=== PATIENT | female | born 1995 | race Caucasian/White ===

== ENCOUNTER 2018-10-27 21:41 | Emergency (ER) | payer OTHER ==
[~2018-10-27] VITALS: Ht 157.5 cm; Wt 80.9 kg
[2018-10-27 21:55] VITALS: BP 130/63
--- NOTE | 2018-10-27 21:58 | NUR ---
PT RETURNED TO LOBBY IN STABLE CONDITION
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
[2018-10-27] MEDS ORDERED: IBUPROFEN 800 MG TAB PO ONE (23:00)
[2018-10-27] MEDS ORDERED: CYCLOBENZAPRINE 10 MG TAB PO ONE (23:25)
--- NOTE | 2018-10-28 00:13 | NUR ---
Patient discharged with v/s stable. Written and verbal after care instructions given and explained. Patient alert, oriented and verbalized understanding of instructions. Ambulatory with steady gait. All questions addressed prior to discharge. ID band removed. Patient advised to follow up with PMD. Rx of FLEXERIL, IBUPROFEN given. Patient educated on indication of medication including possible reaction and side effects. Opportunity to ask questions provided and answered.
[2018-10-28 00:16] VITALS: BP 112/47
== END 2018-10-28 00:13 | disposition home or self-care (01) ==
LOC: MED 21:41
DX: M54.5 Low back pain (principal); M54.40 Lumbago with sciatica, unspecified side; Y04.2XXA Assault by strike against or bumped into by another person, initial encounter; Y93.89 Activity, other specified; Y92.89 Other specified places as the place of occurrence of the external cause; Y99.8 Other external cause status
CPT/HCPCS: 72072; 72110; 81002; 81025; 99283

== ENCOUNTER 2019-02-08 23:16 | Emergency (ER) | payer OTHER ==
[~2019-02-08] VITALS: Ht 157.5 cm; Wt 80.7 kg
[2019-02-08 23:21] VITALS: BP 118/51
--- NOTE | 2019-02-08 23:44 | NUR ---
PT TO ED WITH C/O EPIGASTRIC PAIN AND CONSTIPATION X 3 DAYS. PT DENIES N/V AT THIS TIME. PT REPORTS INCREASE IN PAIN AFTER EATING. +BOWEL SOUNDS X 4 QUADRANTS. DENIES PAIN UPON PALPATION. PT PLACED INTO BED, PENDING MD HCAND.
[2019-02-09] MEDS ORDERED: KETOROLAC 60 MG/2 ML VIAL IM ONE (00:05)
[2019-02-09] MEDS ORDERED: ONDANSETRON 4 MG ODT PO ONE (00:05)
--- NOTE | 2019-02-09 00:30 | NUR ---
DR. LAINEZ MADE AWARE PT PAIN/NAUSEA UNCHANGED AFTER TORADOL, ORDERS PLACED.
[2019-02-09] MEDS ORDERED: MORPHINE SULFATE 4 MG/ML SYR IVP ONE (00:40)
[2019-02-09] MEDS ORDERED: ONDANSETRON 4 MG/2 ML VIAL IVP ONE (00:40)
[2019-02-09] MEDS ORDERED: NACL 0.9% 1,000 ML IV ONE (00:40)
--- NOTE | 2019-02-09 01:40 | NUR ---
PT REPORTS PAIN AT 0/10, NO EPISODES OF N/V POST MEDICATION ADMIN.
--- NOTE | 2019-02-09 01:55 | NUR ---
Patient discharged with v/s stable. Written and verbal after care instructions given and explained. Patient alert, oriented and verbalized understanding of instructions. Ambulatory with steady gait. All questions addressed prior to discharge. ID band removed. Patient advised to follow up with PMD. Rx of ZOFRAN, MOTRIN, NORCO given. Patient educated on indication of medication including possible reaction and side effects. Opportunity to ask questions provided and answered.
--- NOTE | 2019-02-09 01:55 | NUR ---
IV removed, catheter intact and site benign. Applied folded 4x4 gauze and tape to stop bleeding.
[2019-02-09 01:56] VITALS: BP 110/64
== END 2019-02-09 01:56 | disposition home or self-care (01) ==
LOC: MED 23:16
DX: R10.13 Epigastric pain (principal); R11.2 Nausea with vomiting, unspecified; M54.9 Dorsalgia, unspecified
CPT/HCPCS: 81002; 81025; 96361; 96372; 96374; 96375; 99283; J1885; J2270; J2405; J7030; Q0162

== ENCOUNTER 2019-03-04 03:20 | Emergency (ER) | payer OTHER ==
[~2019-03-04] VITALS: Ht 157.5 cm; Wt 80.7 kg
[2019-03-04 03:22] VITALS: BP 123/80
--- NOTE | 2019-03-04 03:41 | NUR ---
DR. CACERES BEDSIDE EVALUATING PT
--- NOTE | 2019-03-04 03:43 | NUR ---
C/O EPIGASTRIC PAIN RADIATING TO BACK X1 HR. REPORTS N/V X2 THIS AM. REPORTS SIMILAR EPISODE IN PAST; ATE CHIPS WITH CHILI AND PIZZA LAST NIGHT. REPORTS LBM YESTERDAY. DENIES FEVER/CHILLS, DIARRHEA OR DYSURIA.
[2019-03-04] MEDS ORDERED: DICYCLOMINE HCL LIQUID 20 MG, ALUMINUM HYD/MAG/SIMETHICONE 30 ML, LIDOCAINE VISCOUS 2% ... PO ONE ×3 (03:45)
--- NOTE | 2019-03-04 04:02 | NUR ---
Dr. Trammell at bedside.
--- NOTE | 2019-03-04 04:12 | NUR ---
PATIENT STATES SHE IS FEELING BETTER AFTER MEDICATION. ERMD AWARE
[2019-03-04 04:28] VITALS: BP 123/80
--- NOTE | 2019-03-04 04:29 | NUR ---
Patient discharged with v/s stable. Written and verbal after care instructions given and explained. Patient alert, oriented and verbalized understanding of instructions. Ambulatory with steady gait. All questions addressed prior to discharge. ID band removed. Patient advised to follow up with PMD. Rx of MYLANTA given. Patient educated on indication of medication including possible reaction and side effects. Opportunity to ask questions provided and answered.
== END 2019-03-04 04:29 | disposition home or self-care (01) ==
LOC: MED 03:20
DX: R10.10 Upper abdominal pain, unspecified (principal); M54.6 Pain in thoracic spine
CPT/HCPCS: 81002; 81025; 99282

== ENCOUNTER 2019-04-01 19:52 | Emergency (ER) | payer OTHER ==
[~2019-04-01] VITALS: Ht 157.5 cm; Wt 62.6 kg
[2019-04-01 19:56] VITALS: BP 127/68
--- NOTE | 2019-04-01 19:58 | NUR ---
TO LOBBY A/W BED , AMBULATORY
--- NOTE | 2019-04-01 20:55 | NUR ---
PT AMBULATED TO ER BED 2
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
[2019-04-01] MEDS ORDERED: FAMOTIDINE 20 MG TAB PO ONE (22:05)
[2019-04-01 22:17] LABS: BASOPHILS % (AUTO) 0.4 % (0.0-2.0); EOSINOPHILS % (AUTO) 0.3 % (0.0-4.0); HEMATOCRIT 37.3 % (36-48); HEMOGLOBIN 12.4 g/dL (12.0-16.0); LYMPHOCYTES # (AUTO) 1.5 K/uL (2.5-16.5); LYMPHOCYTES % (AUTO) 20.6 % (20.5-51.1); MEAN CORPUSCULAR HEMOGLOBIN 31 pg (27-31); MEAN CORPUSCULAR HGB CONC 33 g/dL (33-37); MEAN CORPUSCULAR VOLUME 91.5 fL (80-94); MONOCYTES # (AUTO) 0.4 K/uL (0.8-1.0); MONOCYTES % (AUTO) 6.1 % (1.7-9.3); NEUTROPHILS # (AUTO) 5.3 K/uL (1.8-7.7); NEUTROPHILS % (AUTO) 72.6 % (42.2-75.2); PLATELET COUNT (AUTO) 331 K/uL (140-450); RED BLOOD CELL COUNT(AUTO) 4.07 MIL/uL (4.20-5.40); RED CELL DISTRIBUTION WIDTH 12.9 % (11.6-13.7); WHITE BLOOD COUNT (AUTO) 7.3 K/uL (4.8-10.8)
[2019-04-01 22:27] LABS: ANION GAP 9.7 (8-16); CARBON DIOXIDE 30.5 mmol/L (21-32); CREATININE 0.7 mg/dL (0.6-1.3); POTASSIUM 4.2 mmol/L (3.5-5.1)
[2019-04-01 22:32] LABS: ALBUMIN 3.9 g/dL (3.4-5.0); TOTAL BILIRUBIN 0.6 mg/dL (0.0-1.0)
--- NOTE | 2019-04-01 22:55 | NUR ---
PT IS REFUSING CT SCAN. SHE STATES SHE DOESN'T NEED IT. DR. PISANO NOTIFIED.
--- NOTE | 2019-04-01 22:58 | NUR ---
PATIENT ELOPED FROM FACILITY. PT REFUSING FURTHER TREATMENT. SHE STATES SHE FEELS BETTER AND DOESN'T WISH TO WAIT FOR FURTHER TESTING. DISCHARGE INSTRUCTIONS NOT GIVEN TO PATIENT. DR. PISANO NOTIFIED.
== END 2019-04-01 22:58 | disposition left against medical advice (07) ==
LOC: MED 19:52
DX: R10.13 Epigastric pain (principal); R11.10 Vomiting, unspecified
CPT/HCPCS: 36415; 80053; 81002; 81025; 85025; 99283

== ENCOUNTER 2019-06-02 01:41 | Emergency (ER) | payer OTHER ==
[~2019-06-02] VITALS: Ht 157.5 cm; Wt 63.0 kg
[2019-06-02 01:43] VITALS: BP 108/79
--- NOTE | 2019-06-02 01:43 | NUR ---
TO BED # 04 AMBULATORY
--- NOTE | 2019-06-02 01:52 | NUR ---
PATIENT PRESENTS TO ED WITH ABD PAIN FOR 7 HOURS, DENIES D; SKIN IS PINK/WARM/DRY; AAOX4 WITH EVEN AND STEADY GAIT; LUNGS CLEAR BL; HR EVEN AND REGULAR; PT DENIES ANY FEVER, CP, SOB, OR COUGH AT THIS TIME; PATIENT STATES PAIN OF 6/10 AT THIS TIME; VSS; PATIENT POSITIONED FOR COMFORT; HOB ELEVATED; BEDRAILS UP X2; BED DOWN. ER MD MADE AWARE OF PT STATUS.
--- NOTE | 2019-06-02 02:52 | NUR ---
Dr. Anderson examining patient.
[2019-06-02] MEDS ORDERED: KETOROLAC 60 MG/2 ML VIAL IM ONE (03:00)
[2019-06-02] MEDS ORDERED: DICYCLOMINE HCL LIQUID 20 MG, ALUMINUM HYD/MAG/SIMETHICONE 30 ML, LIDOCAINE VISCOUS 2% ... PO ONE ×3 (03:10)
[2019-06-02 03:28] VITALS: BP 112/80
--- NOTE | 2019-06-02 03:30 | NUR ---
Patient discharged with v/s stable. Written and verbal after care instructions given and explained. Patient alert, oriented and verbalized understanding of instructions. Ambulatory with steady gait. All questions addressed prior to discharge. ID band removed. Patient advised to follow up with PMD. Rx of zofran, motrin, and prilosec given. Patient educated on indication of medication including possible reaction and side effects. Opportunity to ask questions provided and answered.
== END 2019-06-02 03:30 | disposition home or self-care (01) ==
LOC: MED 01:41
DX: R10.13 Epigastric pain (principal); R11.2 Nausea with vomiting, unspecified
CPT/HCPCS: 81002; 81025; 99283; J1885

== ENCOUNTER 2019-06-27 13:53 | Emergency (ER) | payer OTHER ==
[~2019-06-27] VITALS: Ht 157.5 cm; Wt 75.7 kg
[2019-06-27 14:01] VITALS: BP 125/77
--- NOTE | 2019-06-27 14:05 | NUR ---
DR RICHARD EVALUATING AAOX4 AT BEDSIDE
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
--- NOTE | 2019-06-27 15:29 | NUR ---
Patient discharged by Dr Sepulveda with v/s stable. Written and verbal after care instructions given and explained. Patient alert, oriented and verbalized understanding of instructions. Ambulatory with steady gait. All questions addressed prior to discharge. ID band removed. Patient advised to follow up with PMD. Rx of Naprosyn given. Patient educated on indication of medication including possible reaction and side effects. Opportunity to ask questions provided and answered.
--- NOTE | 2019-06-27 15:29 | NUR ---
PT RESTING COMFORTABLY TO BE D/C PER MD, AWAITING ORDERS
[2019-06-27 15:45] VITALS: BP 107/72
--- NOTE | 2019-06-27 15:45 | NUR ---
Note undone in EDM - 06/27/19 at 1555 by LEANNE Patient discharged by Dr Sepulveda with v/s stable. Written and verbal after care instructions given and explained. Patient alert, oriented and verbalized understanding of instructions. Ambulatory with steady gait. All questions addressed prior to discharge. ID band removed. Patient advised to follow up with PMD. Rx of Naprosyn given. Patient educated on indication of medication including possible reaction and side effects. Opportunity to ask questions provided and answered.
== END 2019-06-27 15:29 | disposition home or self-care (01) ==
LOC: MED 13:53
DX: S00.83XA Contusion of other part of head, initial encounter (principal); W10.9XXA Fall (on) (from) unspecified stairs and steps, initial encounter; Y93.89 Activity, other specified; Y92.89 Other specified places as the place of occurrence of the external cause; Y99.8 Other external cause status
CPT/HCPCS: 70486; 99284

== ENCOUNTER 2019-07-25 23:19 | Emergency (ER) | payer OTHER ==
[~2019-07-25] VITALS: Ht 157.5 cm; Wt 76.2 kg
[2019-07-25 23:31] VITALS: BP 115/68
[2019-07-25 23:40] VITALS: BP 115/68
--- NOTE | 2019-07-25 23:40 | NUR ---
24 Y/O F PRESENTS TO ED WITH C/O EPIGASTRIC ABDOMINAL PAIN X1 DAY. S/P INGESTION OF LEMON AND CHILI. +VOMITTING. ADVIL TAKEN AT 1935. BOWEL SOUNDS PRESENT [id number]. ABDOMEN SOFT AND NON-TENDER. WILL CONTIUE TO MONITOR.
--- NOTE | 2019-07-25 23:48 | NUR ---
Patient discharged by with v/s stable. Written and verbal after care instructions given and explained. Patient verbalized understanding. Ambulatory with steady gait. All questions addressed prior to discharge. Advised to follow up with PMD.
== END 2019-07-25 23:48 | disposition home or self-care (01) ==
LOC: MED 23:19
DX: K29.70 Gastritis, unspecified, without bleeding (principal); Z02.79 Encounter for issue of other medical certificate
CPT/HCPCS: 99281

== ENCOUNTER 2019-11-22 06:24 | Emergency (ER) | payer OTHER ==
[~2019-11-22] VITALS: Ht 157.5 cm; Wt 79.0 kg
[2019-11-22 06:30] VITALS: BP 131/59
--- NOTE | 2019-11-22 06:30 | NUR ---
to bed # 06 ambulatory
--- NOTE | 2019-11-22 06:35 | NUR ---
24 Y/O FEMALE BIB SELF FOR MIDEPIGASTRIC PAIN SINCE 0200 TODAY. PROVOKED BY EATING; PAIN IS A 10/10 SHARP, ACUTE PAIN; NON-RADIATING. +N/V BEFORE COMING TO [facility]; DENIES DIARRHEA. LAST BM WAS 11/21/19; FELT CONSTIPATED. PER PATIENT, " I WAS HERE BEFORE FOR THE SAME THING AND THE DOCTOR SAID TO STOP EATING HOT CHEETOS, LEMON AND WAS GIVEN MEDICATION FOR THE PAIN". ABDOMEN SOFT AND ROUND; ABDOMINAL SOUNDS HEARD THROUGHOUT. PAIN UPON PALPATING MIDEPIGASTRIC REGION. DENIES DYSURIA. ERMD MADE AWARE OF STATUS. SIDE RAILSX1. WILL CONTINUE TO MONITOR. PMH:DENIES RX:MEDICATION FOR ABDOMINAL PAIN NKDA
--- NOTE | 2019-11-22 07:05 | NUR ---
Dr. Vivar examining patient.
[2019-11-22 07:06] LABS: BASOPHILS % (AUTO) 0.3 % (0.0-2.0); EOSINOPHILS # (AUTO) 0.2 K/uL (0-0.4); EOSINOPHILS % (AUTO) 1.3 % (0.0-4.0); HEMATOCRIT 36.2 % (36-48); HEMOGLOBIN 11.8 g/dL (12.0-16.0); LYMPHOCYTES # (AUTO) 2.9 K/uL (2.5-16.5); LYMPHOCYTES % (AUTO) 20.2 % (20.5-51.1); MEAN CORPUSCULAR HEMOGLOBIN 31 pg (27-31); MEAN CORPUSCULAR HGB CONC 33 g/dL (33-37); MEAN CORPUSCULAR VOLUME 93.5 fL (80-94); MONOCYTES # (AUTO) 0.9 K/uL (0.8-1.0); MONOCYTES % (AUTO) 6.4 % (1.7-9.3); NEUTROPHILS # (AUTO) 10.4 K/uL (1.8-7.7); NEUTROPHILS % (AUTO) 71.8 % (42.2-75.2); PLATELET COUNT (AUTO) 329 K/uL (140-450); RED BLOOD CELL COUNT(AUTO) 3.87 MIL/uL (4.20-5.40); RED CELL DISTRIBUTION WIDTH 13.2 % (11.6-13.7); WHITE BLOOD COUNT (AUTO) 14.5 K/uL (4.8-10.8)
--- NOTE | 2019-11-22 07:12 | NUR ---
INSERTED LAC 22 GAUGE IV; SALINE LOCK.
--- NOTE | 2019-11-22 07:13 | NUR ---
URINE DIP AND HCG DONE. RESULTS GIVEN TO
--- NOTE | 2019-11-22 07:13 | NUR ---
Pt report given to ROXANNA Gunter. Transfer of care at this time.
--- NOTE | 2019-11-22 07:14 | NUR ---
RECEIVED REPORT FROM ROXANNA CARPIO AND ASSUMED CARE OF PT
[2019-11-22 07:23] LABS: ALBUMIN 3.6 g/dL (3.4-5.0); ANION GAP 11.1 (8-16); CARBON DIOXIDE 30.3 mmol/L (21-32); CREATININE 0.8 mg/dL (0.6-1.3); POTASSIUM 4.4 mmol/L (3.5-5.1); TOTAL BILIRUBIN 0.2 mg/dL (0.0-1.0)
--- NOTE | 2019-11-22 07:39 | NUR ---
ULTRASOUND AT BEDSIDE
[2019-11-22 08:43] LABS: APPEARANCE,URINE CLEAR (CLEAR); BILIRUBIN,URINE NEGATIVE (NEGATIVE); BLOOD, URINE NEGATIVE (NEGATIVE); COLOR,URINE YELLOW (YELLOW); LEUKOCYTE ESTERASE ,URINE NEGATIVE (NEGATIVE); NITRITE, URINE NEGATIVE (NEGATIVE); UGLUCOSE NEGATIVE (NEGATIVE)
--- NOTE | 2019-11-22 08:52 | NUR ---
PT RESTING COMFORTABLY IN BED. PAIN IS NOW 2/10. 1X BEDRAIL UP.
--- NOTE | 2019-11-22 09:57 | NUR ---
IV removed, catheter intact and site benign. Applied folded 4x4 gauze and tape to stop bleeding.
--- NOTE | 2019-11-22 09:57 | NUR ---
Patient discharged with v/s stable. Written and verbal after care instructions given and explained. Patient alert, oriented and verbalized understanding of instructions. Ambulatory with steady gait. All questions addressed prior to discharge. ID band removed. Patient advised to follow up with PMD. Rx of ZOFRAN AND NORCO given. Patient educated on indication of medication including possible reaction and side effects. Opportunity to ask questions provided and answered
[2019-11-22 09:58] VITALS: BP 136/92
== END 2019-11-22 09:57 | disposition home or self-care (01) ==
LOC: MED 06:24
DX: K80.20 Calculus of gallbladder without cholecystitis without obstruction (principal)
CPT/HCPCS: 36415; 76705; 80053; 81003; 81025; 83690; 84703; 85025; 99284

== ENCOUNTER 2019-12-10 01:01 | Emergency (ER) | payer OTHER ==
[~2019-12-10] VITALS: Ht 157.5 cm; Wt 78.9 kg
[2019-12-10 01:05] VITALS: BP 123/78
--- NOTE | 2019-12-10 01:10 | NUR ---
PT AMBULATED TO ER BED 01
--- NOTE | 2019-12-10 01:17 | NUR ---
24 YO FEMALE CO ABD PAIN DUE TO GALL STONES. PT HAS 8/10 PAIN IN HER ABD. PT ATE LEMON ON HER SEAFOOD TODAY CAUSING THE VOMITING. PT HAD N/V. PT TOOK ZOFRAN TODAY. BS ACTIVE IN ALL 4 QUADS. PT IS LAYING IN BED WITH ONE SIDE RAIL UP FOR SAFETY.
[2019-12-10] MEDS ORDERED: KETOROLAC 30 MG/ML VIAL IM ONE (01:55)
[2019-12-10] MEDS ORDERED: DICYCLOMINE HCL LIQUID 20 MG, ALUMINUM HYD/MAG/SIMETHICONE 30 ML, LIDOCAINE VISCOUS 2% ... PO ONE ×3 (01:55)
[2019-12-10] MEDS ORDERED: LIDOCAINE VISCOUS 2% 20 ML UDC ONE (02:06)
[2019-12-10] MEDS ORDERED: ALUMINUM HYD/MAG/SIMETHICONE 30 ML UDC ONE (02:06)
[2019-12-10] MEDS ORDERED: DICYCLOMINE HCL LIQUID 10 MG/5 ML UDC ONE (02:07)
[2019-12-10 02:42] VITALS: BP 123/78
--- NOTE | 2019-12-10 02:45 | NUR ---
Patient discharged with v/s stable. Written and verbal after care instructions given and explained. Patient verbalized understanding. Ambulatory with steady gait. All questions addressed prior to discharge. Advised to follow up with PMD.
== END 2019-12-10 02:45 | disposition home or self-care (01) ==
LOC: MED 01:01
DX: K80.20 Calculus of gallbladder without cholecystitis without obstruction (principal)
CPT/HCPCS: 96372; 99283; J1885

== ENCOUNTER 2020-01-08 03:12 | Emergency (ER) | payer OTHER ==
[~2020-01-08] VITALS: Ht 154.9 cm; Wt 78.9 kg
--- NOTE | 2020-01-08 03:32 | NUR ---
PT TAKEN TO BED 8
[2020-01-08 03:33] VITALS: BP 105/37
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
[2020-01-08] MEDS ORDERED: DICYCLOMINE HCL LIQUID 20 MG, ALUMINUM HYD/MAG/SIMETHICONE 30 ML, LIDOCAINE VISCOUS 2% ... PO ONE ×3 (03:55)
[2020-01-08] MEDS ORDERED: KETOROLAC 30 MG/ML VIAL IM ONE (03:55)
[2020-01-08] MEDS ORDERED: HYDROcodone/APAP 5/325 MG 1 TAB TAB PO ONE (03:55)
[2020-01-08] MEDS ORDERED: LIDOCAINE VISCOUS 2% 20 ML UDC ONE (04:04)
[2020-01-08] MEDS ORDERED: DICYCLOMINE HCL LIQUID 10 MG/5 ML UDC ONE (04:04)
[2020-01-08] MEDS ORDERED: ALUMINUM HYD/MAG/SIMETHICONE 30 ML UDC ONE (04:04)
--- NOTE | 2020-01-08 04:07 | NUR ---
LAB AT BEDSIDE.
[2020-01-08 04:30] LABS: ALBUMIN 3.4 g/dL (3.4-5.0); ANION GAP 10.8 (8-16); CARBON DIOXIDE 29.9 mmol/L (21-32); CREATININE 0.8 mg/dL (0.6-1.3); POTASSIUM 3.7 mmol/L (3.5-5.1); TOTAL BILIRUBIN 0.2 mg/dL (0.0-1.0)
--- NOTE | 2020-01-08 04:38 | NUR ---
PT AMBULATED TO RESTROOM, STEADY GAIT.
--- NOTE | 2020-01-08 04:40 | NUR ---
PT AMBULATED BACK TO BED 8. STEADY GAIT.
[2020-01-08 04:55] LABS: BASOPHILS # (AUTO) 0.1 K/uL (0.00-0.22); BASOPHILS % (AUTO) 0.8 % (0.0-2.0); EOSINOPHILS # (AUTO) 0.3 K/uL (0-0.4); EOSINOPHILS % (AUTO) 2.5 % (0.0-4.0); HEMATOCRIT 34.4 % (36-48); HEMOGLOBIN 11.4 g/dL (12.0-16.0); LYMPHOCYTES # (AUTO) 3.5 K/uL (2.5-16.5); LYMPHOCYTES % (AUTO) 33.5 % (20.5-51.1); MEAN CORPUSCULAR HEMOGLOBIN 31 pg (27-31); MEAN CORPUSCULAR HGB CONC 33 g/dL (33-37); MEAN CORPUSCULAR VOLUME 93.3 fL (80-94); MONOCYTES # (AUTO) 0.8 K/uL (0.8-1.0); MONOCYTES % (AUTO) 7.5 % (1.7-9.3); NEUTROPHILS # (AUTO) 5.8 K/uL (1.8-7.7); NEUTROPHILS % (AUTO) 55.7 % (42.2-75.2); PLATELET COUNT (AUTO) 321 K/uL (140-450); RED BLOOD CELL COUNT(AUTO) 3.69 MIL/uL (4.20-5.40); RED CELL DISTRIBUTION WIDTH 13.3 % (11.6-13.7); WHITE BLOOD COUNT (AUTO) 10.4 K/uL (4.8-10.8)
[2020-01-08 05:29] VITALS: BP 105/37
--- NOTE | 2020-01-08 05:29 | NUR ---
PT DISHCHARGED WITH PAPERWORK. EDUCATED PT REGARDING MEDICATIONS AND D/C INSTRUCTIONS. PT VERBALIZED UNDERSTANDING OF TEACHING. TOLD PT TO FOLLOW UP WITH PCP AND WHEN TO RETURN TO ED. PT STABLE CONDITION, DENIES N/V. ALL QUESTIONS ANSWERED.
== END 2020-01-08 05:29 | disposition home or self-care (01) ==
LOC: MED 03:12
DX: K80.50 Calculus of bile duct without cholangitis or cholecystitis without obstruction (principal)
CPT/HCPCS: 36415; 80053; 81002; 81025; 83690; 85025; 96372; 99283; J1885

== ENCOUNTER 2020-03-18 21:06 | Emergency (ER) | payer OTHER ==
[~2020-03-18] VITALS: Ht 154.9 cm; Wt 80.7 kg
[2020-03-18 21:08] VITALS: BP 111/57
--- NOTE | 2020-03-18 21:13 | NUR ---
PT TAKEN TO BED 12
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
[2020-03-18] MEDS ORDERED: IBUPROFEN 600 MG TAB PO ONE (21:20)
--- NOTE | 2020-03-18 21:20 | NUR ---
pt medicated with motrin po. tolerated well. frandyr
--- NOTE | 2020-03-18 21:20 | NUR ---
Dr. Sepulveda examining patient.
--- NOTE | 2020-03-18 21:30 | NUR ---
X-Ray at bedside.
--- NOTE | 2020-03-18 22:15 | NUR ---
pt taken to RAD via bed.
--- NOTE | 2020-03-18 22:32 | NUR ---
pt returned from RAD via bed.
--- NOTE | 2020-03-18 22:46 | NUR ---
laying down in bed. appears calm and collected. no further needs at this time. bed lowest and locked, rails x 2.
[2020-03-18 23:00] VITALS: BP 118/66
== END 2020-03-18 23:00 | disposition home or self-care (01) ==
LOC: MED 21:06
DX: S93.401A Sprain of unspecified ligament of right ankle, initial encounter (principal); W10.9XXA Fall (on) (from) unspecified stairs and steps, initial encounter; Y93.89 Activity, other specified; Y92.89 Other specified places as the place of occurrence of the external cause; Y99.8 Other external cause status
CPT/HCPCS: 72110; 73562; 73610; 81025; 99284; Q0092

== ENCOUNTER 2020-03-26 11:20 | Emergency (ER) | payer OTHER ==
[~2020-03-26] VITALS: Ht 157.5 cm; Wt 81.6 kg
--- NOTE | 2020-03-26 11:24 | NUR ---
BIBA TAKEN TO BED 11
[2020-03-26 11:30] VITALS: BP 139/96
[2020-03-26] MEDS ORDERED: LORazepam 1 MG TAB PO ONE (11:50)
[2020-03-26] MEDS ORDERED: KETOROLAC 60 MG/2 ML VIAL IM ONE (11:50)
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
[2020-03-26 12:20] VITALS: BP 139/96
--- NOTE | 2020-03-26 12:20 | NUR ---
Patient discharged with v/s stable. Written and verbal after care instructions given and explained. Patient alert, oriented and verbalized understanding of instructions. Ambulatory with steady gait. All questions addressed prior to discharge. ID band removed. Patient advised to follow up with PMD. Rx of ATARAX 25MG TAB, MOTRIN 800MG TAB, NORCO 5MG-325MG TAB given. Patient educated on indication of medication including possible reaction and side effects. Opportunity to ask questions provided and answered.
== END 2020-03-26 12:20 | disposition home or self-care (01) ==
LOC: MED 11:20
DX: M25.562 Pain in left knee (principal); M25.561 Pain in right knee; F41.9 Anxiety disorder, unspecified
CPT/HCPCS: 99283; J1885

== ENCOUNTER 2020-06-25 22:33 | Emergency (ER) | payer OTHER ==
[~2020-06-25] VITALS: Ht 154.9 cm; Wt 81.6 kg
[2020-06-25 22:37] VITALS: BP 119/76
--- NOTE | 2020-06-25 22:42 | NUR ---
PT AMBULATED TO BED 4 WITH STEADY GAIT
--- NOTE | 2020-06-25 23:06 | NUR ---
MD LAINEZ AT BEDSIDE
--- NOTE | 2020-06-25 23:06 | NUR ---
PT STATES SHE STARTED HAVING UPPER ABD PAIN EARLIER TODAY WHICH RADIATES INTO HER BACK, RATES PAIN 10/10 AND STATES IT IS SHARP IN NATURE. ALSO C/O EPIGASTRIC BURNING. PT SAID SHE ATE A LOT OF SPICEY FOOD TODAY. C/O NAUSEA AND VOMITED X 2 LOFTER. PT ALSO C/O OF BEING CONSTIPATED, NO BM X 3 DAYS. SHE SAYS SHE HAS THE URGE BUT UNABLE TO GO. AFEBRILE. BED IN LOWEST POSITION AND SIDERAIL UP X 1 NKA MED HX - GALLSTONES
--- NOTE | 2020-06-25 23:06 | NUR ---
PT WAS PROVIDED WITH CUP FOR UA BUT UNABLE TO URINATE AT THIS TIME
[2020-06-25] MEDS ORDERED: KETOROLAC 60 MG/2 ML VIAL IM ONE (23:15)
[2020-06-26] MEDS ORDERED: MORPHINE SULFATE 4 MG/ML SYR IM ONE (00:05)
[2020-06-26 00:20] VITALS: BP 119/76
--- NOTE | 2020-06-26 00:21 | NUR ---
Patient discharged with v/s stable. Written and verbal after care instructions given and explained. Patient alert, oriented and verbalized understanding of instructions. Ambulatory with steady gait. All questions addressed prior to discharge. ID band removed. Patient advised to follow up with PMD. Rx of NORCO AND MOTRIN given. Patient educated on indication of medication including possible reaction and side effects. Opportunity to ask questions provided and answered.
== END 2020-06-26 00:20 | disposition home or self-care (01) ==
LOC: MED 22:33
DX: R10.9 Unspecified abdominal pain (principal); M54.9 Dorsalgia, unspecified; R11.2 Nausea with vomiting, unspecified; K80.80 Other cholelithiasis without obstruction
CPT/HCPCS: 81002; 81025; 96372; 99284; J1885; J2270

== ENCOUNTER 2020-11-02 21:42 | Emergency (ER) | payer OTHER ==
[~2020-11-02] VITALS: Ht 154.9 cm; Wt 79.4 kg
--- NOTE | 2020-11-02 22:15 | NUR ---
ERMD ASSESSING PATIENT IN TENT.
--- NOTE | 2020-11-02 22:20 | NUR ---
KACY SWAB COLLEDTEC AND SENT TO LAB. NO NURSING INTERVENTIONS NEEDED PATIENT SEEN, TREATED, AND D/C BY ERMSavannah.
--- NOTE | 2020-11-02 22:20 | NUR ---
Note lorenzo in EDM - 11/02/20 at 2241 by [email or web address] KACY DUMAS AND SENT TO LAB. NO NURSING INTERVENTIONS NEEDED PATIENT SEEN, TREATED, AND D/C BY ERMD. ERMD ASSESSING PATIENT IN TENT.
[2020-11-02 22:37] VITALS: BP 128/87
[2020-11-02 22:40] VITALS: BP 128/87
== END 2020-11-02 22:30 | disposition home or self-care (01) ==
LOC: MED 21:42
DX: Z20.828 Contact with and (suspected) exposure to other viral communicable diseases (principal)
CPT/HCPCS: 99283; U0003

== ENCOUNTER 2020-11-12 01:50 | Emergency (ER) | payer OTHER ==
[~2020-11-12] VITALS: Ht 154.9 cm; Wt 78.9 kg
[2020-11-12 01:55] VITALS: BP 123/72
[2020-11-12] MEDS ORDERED: ONDANSETRON 4 MG/2 ML VIAL IVP ONE (02:15)
[2020-11-12] MEDS ORDERED: NACL 0.9% 1,000 ML IV ONE (02:15)
[2020-11-12] MEDS ORDERED: KETOROLAC 30 MG/ML VIAL IVP ONE (02:15)
[2020-11-12 03:36] VITALS: BP 123/72
== END 2020-11-12 03:36 | disposition home or self-care (01) ==
LOC: MED 01:50
DX: R10.11 Right upper quadrant pain (principal); R11.2 Nausea with vomiting, unspecified
CPT/HCPCS: 81002; 81025; 96361; 96374; 96375; 99284; J1885; J2405; J7030

== ENCOUNTER 2020-12-28 16:42 | Emergency (ER) | payer OTHER ==
[~2020-12-28] VITALS: Ht 154.9 cm; Wt 63.0 kg
[2020-12-28 16:47] VITALS: BP 139/56
--- NOTE | 2020-12-28 16:50 | NUR ---
Pt ambulated to ER bed 8 with a steady gait.
--- NOTE | 2020-12-28 16:53 | NUR ---
25 Y/O FEMALE C/O 07/28 TAILBONE PAIN S/P FALL X YESTERDAY. PT DENIES FEVER/CHILLS, DENIES N/V/D. PT STATES DIZZINESS YESTERDAY, DENIES TODAY. PMH: DENIES NKA
--- NOTE | 2020-12-28 16:54 | NUR ---
Dr. Anderson at pt bedside for further evaluation.
[2020-12-28] MEDS ORDERED: KETOROLAC 60 MG/2 ML VIAL IM ONE (17:05)
[2020-12-28] MEDS ORDERED: IBUP-2213 PO (17:06)
[2020-12-28] MEDS ORDERED: ACET-8386 PO (17:06)
[2020-12-28 17:16] VITALS: BP 139/56
--- NOTE | 2020-12-28 17:17 | NUR ---
Patient discharged with v/s stable. Written and verbal after care instructions given and explained. Patient alert, oriented and verbalized understanding of instructions. Ambulatory with steady gait. All questions addressed prior to discharge. ID band removed. Patient advised to follow up with PMD. Rx of IBUPROFEN 600MG PO Q6H PRN PAIN, AND HYDROCODONE-ACETAMINOPHEN 5MG-325MG PO Q6H PRN PAIN given. Patient educated on indication of medication including possible reaction and side effects. Opportunity to ask questions provided and answered.
== END 2020-12-28 17:17 | disposition home or self-care (01) ==
LOC: MED 16:42
DX: M54.5 Low back pain (principal)
CPT/HCPCS: 96372; 99284; J1885

== ENCOUNTER 2021-01-03 21:30 | Emergency (ER) | payer OTHER ==
[~2021-01-03] VITALS: Ht 154.9 cm; Wt 85.7 kg
[~2021-01-03 21:30] MED LIST: ACET-8386 PO; IBUP-2213 PO
[2021-01-03 21:47] VITALS: BP 101/52
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
[2021-01-03 23:05] VITALS: BP 101/52
== END 2021-01-03 23:05 | disposition home or self-care (01) ==
LOC: MED 21:30
DX: S09.8XXA Other specified injuries of head, initial encounter (principal); W22.8XXA Striking against or struck by other objects, initial encounter; Y93.89 Activity, other specified; Y92.89 Other specified places as the place of occurrence of the external cause; Y99.8 Other external cause status
CPT/HCPCS: 99281

== ENCOUNTER 2021-02-02 22:27 | Emergency (ER) | payer OTHER ==
[~2021-02-02] VITALS: Ht 154.9 cm; Wt 85.7 kg
[2021-02-02 22:30] VITALS: BP 132/82
[2021-02-02] MEDS ORDERED: HYDROcodone/APAP 5/325 MG 1 TAB TAB PO ONE (23:30)
[2021-02-03] MEDS ORDERED: KETOROLAC 30 MG/ML VIAL IM ONE (00:35)
[2021-02-03] MEDS ORDERED: HYDR-5080 PO (00:43)
[2021-02-03] MEDS ORDERED: IBUP-1842 PO (00:43)
[2021-02-03 01:02] VITALS: BP 132/82
[2021-02-04] MEDS ORDERED: LOPE-289 PO (23:09)
[2021-02-04] MEDS ORDERED: ONDA8TAB87 PO (23:09)
== END 2021-02-03 01:58 | disposition home or self-care (01) ==
LOC: MED 22:27
DX: S93.401A Sprain of unspecified ligament of right ankle, initial encounter (principal); M25.561 Pain in right knee; M25.562 Pain in left knee; W19.XXXA Unspecified fall, initial encounter; Y93.89 Activity, other specified; Y92.89 Other specified places as the place of occurrence of the external cause; Y99.8 Other external cause status
CPT/HCPCS: 73562; 73630; 96372; 99284; J1885

== ENCOUNTER 2021-02-04 20:25 | Emergency (ER) | payer OTHER ==
[~2021-02-04] VITALS: Ht 154.9 cm; Wt 85.7 kg
[~2021-02-04 20:25] MED LIST changes: +HYDR-5080 PO; +IBUP-1842 PO
[2021-02-04 20:32] VITALS: BP 115/67
[2021-02-04] MEDS ORDERED: ONDANSETRON 4 MG ODT PO ONE (22:20)
[2021-02-04] MEDS ORDERED: KETOROLAC 60 MG/2 ML VIAL IM ONE (22:20)
[2021-02-04] MEDS ORDERED: ONDA8TAB87 PO (23:09)
[2021-02-04] MEDS ORDERED: LOPE-289 PO (23:09)
[2021-02-04 23:15] VITALS: BP 119/68
== END 2021-02-04 23:15 | disposition home or self-care (01) ==
LOC: MED 20:25
DX: R51.9 Headache, unspecified (principal); R11.2 Nausea with vomiting, unspecified; R19.7 Diarrhea, unspecified; Z79.899 Other long term (current) drug therapy
CPT/HCPCS: 81002; 96372; 99283; J1885; Q0162

== ENCOUNTER 2021-02-11 18:04 | Emergency (ER) | payer OTHER ==
[~2021-02-11] VITALS: Ht 157.5 cm; Wt 71.7 kg
[~2021-02-11 18:04] MED LIST changes: +LOPE-289 PO; +ONDA8TAB87 PO
[2021-02-11 18:06] VITALS: BP 108/63
--- NOTE | 2021-02-11 18:38 | NUR ---
25 Y/O F BIB SELF FROM HOME, C/O FEVERS FOR 2 DAYS. PT DENIES ABD PAIN, STATES SHE SOMETIMESHAS CHEST PAIN, NO SOB, NO COUGH. DENIES N/V/D; SKIN IS PINK/WARM/DRY; AAOX4 WITH EVEN AND STEADY GAIT; LUNGS CLEAR BL; HR EVEN AND REGULAR; PATIENT STATES PAIN OF 0/10 AT THIS TIME; VSS; PATIENT POSITIONED FOR COMFORT; HOB ELEVATED; BEDRAILS UP X2; BED DOWN. ER MD MADE AWARE OF PT STATUS. PMH: NONE ALLERGY: NKA MEDS: NONE
[2021-02-11 19:02] VITALS: BP 108/63
== END 2021-02-11 18:44 | disposition home or self-care (01) ==
LOC: MED 18:04
DX: R50.9 Fever, unspecified (principal); M79.10 Myalgia, unspecified site; Z20.822 Contact with and (suspected) exposure to COVID-19
CPT/HCPCS: 99283; U0003

== ENCOUNTER 2021-03-03 05:19 | Emergency (ER) | payer OTHER ==
[~2021-03-03] VITALS: Ht 154.9 cm; Wt 83.0 kg
[2021-03-03 05:35] VITALS: BP 116/73
--- NOTE | 2021-03-03 05:35 | NUR ---
TO BED AMBULATORY
[2021-03-03] MEDS ORDERED: ONDANSETRON 4 MG/2 ML VIAL IVP ONE (05:40)
[2021-03-03] MEDS ORDERED: NACL 0.9% 1,000 ML IV ONE (05:40)
[2021-03-03] MEDS ORDERED: MORPHINE SULFATE 4 MG/ML SYR IVP ONE (05:40)
--- NOTE | 2021-03-03 05:45 | NUR ---
PATIENT PRESENTS TO ED WITH C/O RIGHT ABDOMINAL PAIN . PT STATES I HAVE GALLSTONES AND I RAN OUT OF MY NORCO. . DENIES N/V/D; SKIN IS PINK/WARM/DRY; AAOX4 WITH EVEN AND STEADY GAIT; LUNGS CLEAR BL; HR EVEN AND REGULAR; PT DENIES ANY FEVER, CP, SOB, OR COUGH AT THIS TIME; PATIENT STATES PAIN OF 10/10 AT THIS TIME; VSS; PATIENT POSITIONED FOR COMFORT; HOB ELEVATED; BEDRAILS UP X2; BED DOWN. ER MD MADE AWARE OF PT STATUS.
--- NOTE | 2021-03-03 06:54 | NUR ---
Ultrasound at bedside.
[2021-03-03 07:14] LABS: BASOPHILS % (AUTO) 0.5 % (0.0-2.0); EOSINOPHILS # (AUTO) 0.1 K/uL (0-0.4); HEMATOCRIT 39.3 % (36-48); HEMOGLOBIN 13.2 g/dL (12.0-16.0); LYMPHOCYTES # (AUTO) 2.3 K/uL (2.5-16.5); LYMPHOCYTES % (AUTO) 30.3 % (20.5-51.1); MEAN CORPUSCULAR HEMOGLOBIN 31 pg (27-31); MEAN CORPUSCULAR HGB CONC 34 g/dL (33-37); MEAN CORPUSCULAR VOLUME 93.9 fL (80-94); MONOCYTES # (AUTO) 0.6 K/uL (0.8-1.0); MONOCYTES % (AUTO) 7.2 % (1.7-9.3); NEUTROPHILS # (AUTO) 4.7 K/uL (1.8-7.7); PLATELET COUNT (AUTO) 381 K/uL (140-450); RED BLOOD CELL COUNT(AUTO) 4.19 MIL/uL (4.20-5.40); RED CELL DISTRIBUTION WIDTH 12.9 % (11.6-13.7); WHITE BLOOD COUNT (AUTO) 7.6 K/uL (4.8-10.8)
[2021-03-03 07:36] LABS: ALBUMIN 3.9 g/dL (3.4-5.0); ANION GAP 10.6 (8-16); CREATININE 0.7 mg/dL (0.6-1.3); POTASSIUM 3.6 mmol/L (3.5-5.1); TOTAL BILIRUBIN 0.3 mg/dL (0.0-1.0)
[2021-03-03 07:39] LABS: APPEARANCE,URINE CLEAR (CLEAR); BILIRUBIN,URINE NEGATIVE (NEGATIVE); BLOOD, URINE NEGATIVE (NEGATIVE); COLOR,URINE YELLOW (YELLOW); LEUKOCYTE ESTERASE ,URINE NEGATIVE (NEGATIVE); NITRITE, URINE NEGATIVE (NEGATIVE); UGLUCOSE NEGATIVE (NEGATIVE)
[2021-03-03] MEDS ORDERED: IBUP-2213 PO (07:39)
[2021-03-03] MEDS ORDERED: ONDA-24 PO (07:39)
[2021-03-03 07:44] LABS: RBC,URINE 0-5 /HPF (0-5); WBC,URINE 0-5 /HPF (0-5)
[2021-03-03 07:59] VITALS: BP 112/74
--- NOTE | 2021-03-03 08:00 | NUR ---
Patient discharged with v/s stable. Written and verbal after care instructions given and explained. Patient alert, oriented and verbalized understanding of instructions. Ambulatory with steady gait. All questions addressed prior to discharge. ID band removed. Patient advised to follow up with PMD. Rx of IBUPROFEN AND ZOFRAN given. Patient educated on indication of medication including possible reaction and side effects. Opportunity to ask questions provided and answered.
== END 2021-03-03 08:00 | disposition home or self-care (01) ==
LOC: MED 05:19
DX: R10.13 Epigastric pain (principal); Z79.899 Other long term (current) drug therapy
CPT/HCPCS: 36415; 76705; 80053; 81001; 81025; 83605; 84484; 85025; 93005; 96361; 96374; 96375; 99285; J2270; J2405; J7030

== ENCOUNTER 2021-06-05 19:04 | Emergency (ER) | payer OTHER ==
[~2021-06-05] VITALS: Ht 154.9 cm; Wt 86.2 kg
[~2021-06-05 19:04] MED LIST changes: -HYDR-5080 PO; -IBUP-1842 PO; -LOPE-289 PO; +ONDA-24 PO
--- NOTE | 2021-06-05 19:20 | NUR ---
TO TENT AMBULATORY SEEN AND EXAMINED BY ERMD WITH ORDERS, CARRIED OUT
--- NOTE | 2021-06-05 19:25 | NUR ---
SWAB FOR DAWOOD SENT TO LAB
[2021-06-05 19:30] VITALS: BP 120/64
[2021-06-05] MEDS ORDERED: ROBAC PO (20:23)
[2021-06-05] MEDS ORDERED: ACET-10509 PO (20:23)
[2021-06-05 21:15] VITALS: BP 120/64
--- NOTE | 2021-06-05 21:15 | NUR ---
Patient discharged with v/s stable. Written and verbal after care instructions given and explained. Patient alert, oriented and verbalized understanding of instructions. Ambulatory with steady gait. All questions addressed prior to discharge. ID band removed. Patient advised to follow up with PMD. Rx of tylenol aND GUAIFENESIN-CODEINE given. Patient educated on indication of medication including possible reaction and side effects. Opportunity to ask questions provided and answered.
== END 2021-06-05 21:15 | disposition home or self-care (01) ==
LOC: MED 19:04
DX: U07.1 COVID-19 (principal)
CPT/HCPCS: 71045; 99284

== ENCOUNTER 2021-06-09 01:45 | Emergency (ER) | payer OTHER, SELFPAY ==
[~2021-06-09] VITALS: Ht 154.9 cm; Wt 87.5 kg
[~2021-06-09 01:45] MED LIST changes: +ACET-10509 PO; +ROBAC PO
[2021-06-09 02:53] VITALS: BP 125/93
--- NOTE | 2021-06-09 03:00 | NUR ---
PATIENT IN TENT
--- NOTE | 2021-06-09 04:01 | NUR ---
Anoop ventura in [facility] - 06/09/21 at 0401 by BRENDA PT TAKEN TO XRAY
--- NOTE | 2021-06-09 04:02 | NUR ---
PATIENT ELOPED FROM FACILITY. DISCHARGE INSTRUCTIONS NOT GIVEN TO PATIENT. DR. AVERY NOTIFIED.
--- NOTE | 2021-06-09 04:10 | NUR ---
PATIENT RETURNED TO TENT, ERMD MADE AWARE.
--- NOTE | 2021-06-09 04:15 | NUR ---
PATIENT RETURNED TO TENT AFTER XRAY.
[2021-06-09 04:32] VITALS: BP 117/70
--- NOTE | 2021-06-09 04:32 | NUR ---
Patient discharged with v/s stable. Written and verbal after care instructions given and explained. Patient verbalized understanding. Ambulatory with steady gait. ID band removed. All questions addressed prior to discharge. Advised to follow up with PMD.
== END 2021-06-09 04:32 | disposition home or self-care (01) ==
LOC: MED 01:45
DX: U07.1 COVID-19 (principal); Z79.899 Other long term (current) drug therapy
CPT/HCPCS: 71045; 99283

== ENCOUNTER 2021-06-11 13:09 | Emergency (ER) | payer OTHER, SELFPAY ==
[~2021-06-11] VITALS: Ht 154.9 cm; Wt 87.1 kg
[~2021-06-11 13:09] MED LIST changes: +ONDA-188 PO; -ONDA-24 PO
[2021-06-11 13:28] VITALS: BP 105/69
--- NOTE | 2021-06-11 13:34 | NUR ---
TENT 4
--- NOTE | 2021-06-11 13:58 | NUR ---
PT AMB TO BED 1.
--- NOTE | 2021-06-11 14:54 | NUR ---
26 Y/O F BIB SELF FROM HOME, C/O COUGH, FEVERS, SOB AND BACK PAIN SINCE 06/04/21. PT STATES SHE WAS DX WITH COVID+ AND HAS BEEN HAVING WORSENING SYMPTOMS. PT STATES "I THINK IM HAVING BACK PAIN BECAUSE SOFI BEEN COUGHING". DENIES N/V/D; SKIN IS PINK/WARM/DRY; AAOX4 WITH EVEN AND STEADY GAIT; LUNGS WHEEZING BL; HR EVEN AND REGULAR; PATIENT STATES PAIN OF 0/10 AT THIS TIME; VSS; PATIENT POSITIONED FOR COMFORT; HOB ELEVATED; BEDRAILS UP X2; BED DOWN. ER MD MADE AWARE OF PT STATUS. ERMD MADE AWARE OF COVID STATUS. PMH: DENIES NKA MED: NEEDS REFILLS FROM PREVIOUS VISIT
[2021-06-11 16:03] VITALS: BP 105/69
== END 2021-06-11 16:03 | disposition home or self-care (01) ==
LOC: MED 13:09
DX: U07.1 COVID-19 (principal)
CPT/HCPCS: 71045; 93005; 99283; Q0092

== ENCOUNTER 2021-06-17 13:44 | Emergency (ER) | payer OTHER, SELFPAY ==
[~2021-06-17] VITALS: Ht 154.9 cm; Wt 86.2 kg
[~2021-06-17 13:44] MED LIST changes: -ONDA-188 PO; +ONDA-24 PO
[2021-06-17 14:32] VITALS: BP 102/58
[2021-06-17 14:54] VITALS: BP 102/58
--- NOTE | 2021-06-17 14:54 | NUR ---
NO NURSE CARE RENDERED
== END 2021-06-17 14:54 | disposition home or self-care (01) ==
LOC: MED 13:44
DX: R05 Cough (principal); R06.2 Wheezing
CPT/HCPCS: 99281

== ENCOUNTER 2021-06-26 00:25 | Inpatient (IN) | payer OTHER, SELFPAY ==
[~2021-06-26] VITALS: Ht 157.5 cm; Wt 86.2 kg
[2021-06-26 00:38] VITALS: BP 111/55
[2021-06-26] MEDS ORDERED: DEC4 PO (02:11)
[2021-06-26] MEDS ORDERED: IVER3TAB2 PO (02:11)
[2021-06-26] MEDS ORDERED: AZIT250T4 PO (02:11)
[2021-06-26] MEDS ORDERED: BENZ-196 PO (02:11)
--- NOTE | 2021-06-26 02:14 | NUR ---
MD RICHARD EVALUATING PT.
[2021-06-26] MEDS ORDERED: MORPHINE SULFATE 4 MG/ML SYR IVP ONE (02:20)
[2021-06-26] MEDS ORDERED: ONDANSETRON 4 MG/2 ML VIAL IVP ONE (02:20)
--- NOTE | 2021-06-26 02:25 | NUR ---
URINE COLLECTED AND WALKED TO LAB.
[2021-06-26 02:36] LABS: BASOPHILS % (AUTO) 0.4 % (0.0-2.0); EOSINOPHILS # (AUTO) 0.1 K/uL (0-0.4); EOSINOPHILS % (AUTO) 0.8 % (0.0-4.0); HEMATOCRIT 35.7 % (36-48); LYMPHOCYTES # (AUTO) 2.8 K/uL (2.5-16.5); MEAN CORPUSCULAR HEMOGLOBIN 31 pg (27-31); MEAN CORPUSCULAR HGB CONC 34 g/dL (33-37); MEAN CORPUSCULAR VOLUME 92.7 fL (80-94); MONOCYTES # (AUTO) 0.9 K/uL (0.8-1.0); MONOCYTES % (AUTO) 10.6 % (1.7-9.3); NEUTROPHILS # (AUTO) 4.8 K/uL (1.8-7.7); NEUTROPHILS % (AUTO) 55.2 % (42.2-75.2); PLATELET COUNT (AUTO) 599 K/uL (140-450); RED BLOOD CELL COUNT(AUTO) 3.85 MIL/uL (4.20-5.40); RED CELL DISTRIBUTION WIDTH 13.2 % (11.6-13.7); WHITE BLOOD COUNT (AUTO) 8.6 K/uL (4.8-10.8)
--- NOTE | 2021-06-26 02:45 | NUR ---
ULTRASOUND AT BEDSIDE.
--- NOTE | 2021-06-26 02:51 | NUR ---
PT BIB SELF FOR C/C RUQ ABDOMINAL PAIN. PT REPORTS SHE WAS DX WITH "GALLBLADDER SLUDGE" TWO MONTHS AGO. PT REPORTS THIS IS THE SAME ABDOMINAL PAIN SHE HAS HAD IN THE PAST. DENIES N/V/D, FEVER, CHILLS, CP OR SOB. MED HX: GALLBLADDER SLUDGE ALLERGIES: NKA
[2021-06-26 02:53] LABS: ALBUMIN 3.8 g/dL (3.4-5.0); ANION GAP 8.1 (8-16); CARBON DIOXIDE 31.1 mmol/L (21-32); CREATININE 0.9 mg/dL (0.6-1.3); POTASSIUM 4.2 mmol/L (3.5-5.1); TOTAL BILIRUBIN 0.6 mg/dL (0.0-1.0)
[2021-06-26 02:58] LABS: APPEARANCE,URINE SL CLOUDY (CLEAR); BILIRUBIN,URINE NEGATIVE (NEGATIVE); BLOOD, URINE NEGATIVE (NEGATIVE); COLOR,URINE YELLOW (YELLOW); LEUKOCYTE ESTERASE ,URINE NEGATIVE (NEGATIVE); NITRITE, URINE NEGATIVE (NEGATIVE); UGLUCOSE NEGATIVE (NEGATIVE)
--- NOTE | 2021-06-26 03:18 | NUR ---
PT REPORTS IN THE EVENT THAT SHE IS TO BE ADMITTED TO HOSPITAL, SHE WOULD RATHER GO HOME AND FOLLOW UP WITH HER PRIMARY DOCTOR. ERMD AWARE.
--- NOTE | 2021-06-26 04:01 | NUR ---
PT AMBULATED TO RESTROOM AND BACK TO BED WITH EVEN AND STEADY GAIT.
[2021-06-26] MEDS ORDERED: metroNIDAZOLE 500 MG/NS PREMIX 100 ML IV ONE ×2 (05:50→05:54)
--- NOTE | 2021-06-26 05:55 | NUR ---
LAB AT BEDSIDE.
--- NOTE | 2021-06-26 05:59 | NUR ---
ERMD AT BEDSIDE DISCUSSING RESULTS.
--- NOTE | 2021-06-26 06:10 | NUR ---
DAWOOD OF NARES COLLECTED AND TAKEN TO LAB.
[2021-06-26] MEDS ORDERED: MORPHINE SULFATE 2 MG/ML SYR IVP PRN (06:30)
[2021-06-26] MEDS ORDERED: MORPHINE SULFATE 4 MG/ML SYR IVP PRN (06:30)
[2021-06-26] MEDS ORDERED: ACETAMINOPHEN 325 MG TAB PO PRN (06:30)
[2021-06-26] MEDS ORDERED: HYDROcodone/APAP 5/325 MG 1 TAB TAB PO PRN (06:30)
[2021-06-26] MEDS ORDERED: ONDANSETRON 4 MG/2 ML VIAL IVP PRN (06:30)
[2021-06-26] MEDS ORDERED: NACL 0.9% 1,000 ML IV SCH (06:30)
--- NOTE | 2021-06-26 07:12 | NUR ---
REPORT GIVEN TO ROXANNA FARRIS/HAIR RN FOR CONTINUITY OF CARE.
--- NOTE | 2021-06-26 07:13 | NUR ---
REPORT AND CONTINUATION OF CARE RECEIVED FROM ROXANNA BERG.
[2021-06-26] MEDS ORDERED: cefTRIAXone 1,000 MG VIAL ONE (07:27)
--- NOTE | 2021-06-26 08:37 | NUR ---
DR. JARQUIN IS EVALUATING PATIENT AT BEDSIDE
--- NOTE | 2021-06-26 09:15 | NUR ---
2ND RN AT BEDSIDE WITNESS PATIENT STATING SHE IS REQUESTING TO LEAVE AMA. PATIENT STATES SHE WANTS TO REFUSE SURGERY, WAIT ONE WEEK TO MEET WITH HER PRIMARY CARE WITH ULTRASOUND RESULTS AND MAKE A DECISION AFTER. PATIENT STATES "I WANT TO CHANGE MY DIET, CUT GREASEY FOODS AND SEE IF IT HELPS."
--- NOTE | 2021-06-26 09:30 | NUR ---
PATIENT PRESENTED WITH AMA/TREATMENT FORM. PATIENT STATES "I UNDERSTAND THE SITUATION, BUT I FEEL LIKE IT'S HAPPENING TOO FAST AND HAVE MY GALLBLADDER REMOVED." PATIENT STATES "I HAVE NEVER HAD TO SIGN AN AMA FORM IN THE PAST." PT IS REQUESTING TO CONTACT FAMILY MEMBER BEFORE MAKING A DECISION.
--- NOTE | 2021-06-26 11:02 | NUR ---
Spoke with , stated he will DC Patient instead of AMA.
[2021-06-26] MEDS ORDERED: metroNIDAZOLE 500 MG/NS PREMIX 100 ML IV SCH (13:00)
--- NOTE | 2021-06-26 13:20 | NUR ---
PATIENT AMBULATED TO BATHROOM, STEADY GAIT
[2021-06-26 14:18] VITALS: BP 93/60
--- NOTE | 2021-06-26 14:35 | NUR ---
Patient discharged with v/s stable. Written and verbal after care instructions given and explained for cholecystitis. Patient advised to follow up with PCP as soon as possible. Patient signed patient belongings list and discharge paperwork form. Patient verbalized understanding. Ambulatory with steady gait. All questions addressed prior to discharge. Advised to follow up with PMD.
== END 2021-06-26 14:35 | disposition home or self-care (01) ==
LOC: MED 00:25 → MMU 06:34
PROVIDERS: ADMIT Hospitalist; ATTEND Hospitalist
DX: K80.20 Calculus of gallbladder without cholecystitis without obstruction (principal); Z20.822 Contact with and (suspected) exposure to COVID-19; Z79.899 Other long term (current) drug therapy; Z86.16 Personal history of COVID-19
CPT/HCPCS: 36415; 76705; 80053; 81003; 82150; 83690; 85025; 87040; 96365; 96375; 99285; J0696; J2270; J2405; J3490; J7060; Q0092

== ENCOUNTER 2021-06-27 15:45 | Inpatient (IN) | payer OTHER, SELFPAY ==
[~2021-06-27] VITALS: Ht 154.9 cm; Wt 59.0 kg
[~2021-06-27 15:45] MED LIST changes: +AZIT250T4 PO; +BENZ-196 PO; +DEC4 PO; +IVER3TAB2 PO
[2021-06-27 16:07] VITALS: BP 91/58
[2021-06-27 17:41] LABS: BASOPHILS % (AUTO) 0.4 % (0.0-2.0); EOSINOPHILS # (AUTO) 0.1 K/uL (0-0.4); EOSINOPHILS % (AUTO) 0.8 % (0.0-4.0); HEMATOCRIT 35.7 % (36-48); HEMOGLOBIN 11.8 g/dL (12.0-16.0); LYMPHOCYTES # (AUTO) 1.9 K/uL (2.5-16.5); LYMPHOCYTES % (AUTO) 20.4 % (20.5-51.1); MEAN CORPUSCULAR HEMOGLOBIN 31 pg (27-31); MEAN CORPUSCULAR HGB CONC 33 g/dL (33-37); MONOCYTES # (AUTO) 0.6 K/uL (0.8-1.0); NEUTROPHILS # (AUTO) 6.9 K/uL (1.8-7.7); NEUTROPHILS % (AUTO) 72.4 % (42.2-75.2); PLATELET COUNT (AUTO) 486 K/uL (140-450); RED BLOOD CELL COUNT(AUTO) 3.84 MIL/uL (4.20-5.40); RED CELL DISTRIBUTION WIDTH 13.2 % (11.6-13.7); WHITE BLOOD COUNT (AUTO) 9.5 K/uL (4.8-10.8)
[2021-06-27 18:05] LABS: ALBUMIN 3.7 g/dL (3.4-5.0); ANION GAP 12.7 (8-16); CARBON DIOXIDE 28.3 mmol/L (21-32); CREATININE 0.8 mg/dL (0.6-1.3); TOTAL BILIRUBIN 0.5 mg/dL (0.0-1.0)
[2021-06-27] MEDS ORDERED: PIPERACILLIN/TAZOBACTAM 3.375 GM in DEXTROSE 5% 50 ML IV ONE (18:45)
[2021-06-27] MEDS ORDERED: HYDROcodone/APAP 5/325 MG 1 TAB TAB PO PRN (18:50)
[2021-06-27] MEDS ORDERED: ACETAMINOPHEN 325 MG TAB PO PRN (18:50)
[2021-06-27] MEDS ORDERED: MORPHINE SULFATE 4 MG/ML SYR IVP PRN (18:50)
[2021-06-27] MEDS ORDERED: ONDANSETRON 4 MG/2 ML VIAL IVP PRN (18:50)
--- NOTE | 2021-06-27 19:20 | NUR ---
PT AMBULATED TO BED7
--- NOTE | 2021-06-27 19:21 | NUR ---
/ C/O SHARP/ACHING ABD PAIN X 2 DAYS. PT ALSO COMPLAINING OF N/V/D. PT WAS SEEN HERE AT ED YESTERDAY WITH SAME S/SX, AND PAIN 04/27. DENIES PMHX NKDA
--- NOTE | 2021-06-27 20:35 | NUR ---
IV INSERTION DONE AT [facility]. MEDS GIVEN ORDERED
[2021-06-27] MEDS ORDERED: PIPERACILLIN/TAZOBACTAM 3.375 GM VIAL IV ONE (20:37)
[2021-06-27] MEDS: NACL 0.9% 1,000 ML IV SCH (20:39)
--- NOTE | 2021-06-28 | NUR ---
PT PLACED ON NPO. PT ASSISTED TO CHANGE IN GOWN WELL. PT WITH NO REQUESTS OR COMPLAINTS AT THIS TIME
--- NOTE | 2021-06-28 02:30 | NUR ---
VS STABLE. PT RESTING IN BED. TOLERABLE PAIN AT THIS TIME. NO REQUESTS MADE. PT KEPT NPO
[2021-06-28] MEDS ORDERED: PIPERACILLIN/TAZOBACTAM 3.375 GM in DEXTROSE 5% 50 ML IV SCH (05:00)
[2021-06-28] MEDS ORDERED: PIPERACILLIN/TAZOBACTAM 3.375 GM VIAL IV ONE (05:05)
--- NOTE | 2021-06-28 05:25 | NUR ---
PT FEELING NAUSEUS. PRN ZOFRAN GIVEN
--- NOTE | 2021-06-28 07:26 | NUR ---
ENDORSED TO FUNMILAYO MCKNIGHT FOR CONTINUITY OF CARE
[2021-06-28] MEDS ORDERED: fentaNYL citrate 0.05 MG/ML VIAL ONE (07:49)
[2021-06-28] MEDS ORDERED: MIDAZOLAM 2 MG/2 ML VIAL ONE (07:49)
[2021-06-28] MEDS ORDERED: SUCCINYLCHOLINE CHLORIDE 200 MG/10 ML VIAL IVP ONE (07:50)
[2021-06-28] MEDS ORDERED: PROPOFOL 200 MG/20 ML VIAL IV ONE (07:50)
[2021-06-28] MEDS ORDERED: LIDOCAINE 1% 500 MG/50 ML VIAL ONE (07:55)
[2021-06-28] MEDS ORDERED: BUPIVACAINE-MPF/EPI 0.5% 30 ML VIAL INJ ONE (07:56)
--- NOTE | 2021-06-28 08:17 | NUR ---
PT WAS PICKED UP FROM ER AND TAKEN TO OR
[2021-06-28] MEDS ORDERED: SEVOFLURANE 250 ML BTL INH ONE (08:25)
[2021-06-28] MEDS ORDERED: ROCURONIUM 50 MG/5 ML VIAL IV ONE (08:43)
[2021-06-28] MEDS ORDERED: ONDANSETRON 4 MG/2 ML VIAL ONE (08:45)
[2021-06-28] MEDS ORDERED: DEXAMETHASONE 4 MG/ML VIAL ONE ×2 (08:45)
--- NOTE | 2021-06-28 08:59 | NUR ---
PATIENT HAS BEEN SCREENED AND CATEGORIZED LOW NUTRITION RISK. PATIENT WILL BE SEEN WITHIN 7 DAYS OF ADMISSION. 07/04/[address]
[2021-06-28] MEDS ORDERED: MEPERIDINE 25 MG/ML SYR IVP PRN (09:00)
[2021-06-28] MEDS ORDERED: ONDANSETRON 4 MG/2 ML VIAL IVP PRN (09:00)
[2021-06-28] MEDS ORDERED: LACTATED RINGERS 1,000 ML IV SCH (09:00)
[2021-06-28] MEDS ORDERED: diphenhydrAMINE 50 MG/ML VIAL IVP PRN (09:00)
[2021-06-28] MEDS ORDERED: HYDROmorphone 1 MG/ML AMP IVP PRN (09:00)
[2021-06-28] MEDS ORDERED: SUGAMMADEX SODIUM 200 MG/2 ML VIAL IV ONE (09:40)
[2021-06-28] MEDS ORDERED: MEPERIDINE 50 MG/ML SYR ONE (09:44)
--- NOTE | 2021-06-28 10:50 | NUR ---
PATIENT ARRIVE FROM OR. PATIENT SLEEPING. NO ACUTE DISTRESS NOTED. PATIENT ON 2 L NC. BP 109/71, HR 68, TEMP 97.3, RR 16, O2 98%. LUNG SOUND ARE CLEAR, BOWEL SOUND HEARD IN ALL FOUR QUADRANTS, NO MURMURS HEARD. SKIN IS WARM, INTACT, AND DRY TO TOUCH. ALL SAFETY MEASURE IN PLACE. CALL LIGHT WITHIN REACH. WILL CONTINUE TO MONITOR.
[2021-06-28] MEDS: HYDROmorphone 1 MG/ML AMP IVP PRN ×2 (11:57→21:57)
[2021-06-28 12:00] VITALS: BP 124/81
--- NOTE | 2021-06-28 12:00 | NUR ---
PATIENT SLEEPING. BREATHING EVEN AND UNLABORED. NO ACUTE DISTRESS NOTED. EASY TO AWAKEN. PATIENT REMOVED NC. PATIENT SATING AT 99% O2. ALL SAFETY MEASURES IN PLACE. CALL LIGHT WITHIN REACH. WILL CONTINUE TO MONITOR.
--- NOTE | 2021-06-28 12:58 | NUR ---
PATIENT SLEEPING. EASY TO AWAKEN. NO ACUTE DISTRESS NOTED. ALL SAFETY MEASURES IN PLACE. CALL LIGHT WITHIN REACH. WILL CONTINUE TO MONITOR.
--- NOTE | 2021-06-28 14:18 | NUR ---
DC PLANNING SW ATTEMPTED TO CONTACT PATIENT'S DAUGHTER PRIYANKA WOOTEN AT TO DISCUSS AND GATHER PATIENT'S COLLATERAL INFORMATION. PATIENT'S DAUGHTER DID NOT RESPOND THE CALL AND SW LEFT HER A VOICE MAIL MSG WITH DIRECT CONTACT NUMBER. VERNELL ATTEMPTED TO MAKE A FOLLOW UP APPOINTMENT FOR PATIENT W/MIKY HAIRSTON AT [facility] OFFICE [address] [place] [id number]. . OFFICE WAS CLOSE FOR THE DAY THEREFORE SW WILL FOLLOW UP ON THURSDAY.
--- NOTE | 2021-06-28 14:47 | NUR ---
PATIENT AWAKE. BREATHING EVEN AND UNLABORED. NO ACUTE DISTRESS NOTED. ALL SAFETY MEASURES IN PLACE. CALL LIGHT WITHIN REACH. WILL CONTINUE TO MONITOR.
[2021-06-28] MEDS: HYDROcodone/APAP 5/325 MG 1 TAB TAB PO PRN (15:56)
[2021-06-28 16:00] VITALS: BP 107/67
[2021-06-28] MEDS: metroNIDAZOLE 500 MG/NS PREMIX 100 ML IV SCH ×2 (16:00→21:58)
--- NOTE | 2021-06-28 16:08 | NUR ---
PATIENT AWAKE. BREATHING EVEN AND UNLABORED. NO ACUTE DISTRESS NOTED.PATIENT AMBULATE TO BATHROOM WITHIN DIFFICULTY. PATIENT FAMILY VISITED AT WINDOW. ALL SAFETY MEASURES IN PLACE. CALL LIGHT WITHIN REACH. WILL CONTINUE TO MONITOR.
--- NOTE | 2021-06-28 16:47 | NUR ---
RECEIVED FNS REFERRAL FOR NAUSEA, VOMITING AND DIARRHEA OVER 3 DAYS. PATIENT WAS RE-SCREENED HIGH NUTRITIONAL RISK.
--- NOTE | 2021-06-28 18:11 | NUR ---
PATIENT AWAKE. BREATHING EVEN AND UNLABORED. PATIENT CRYING IN ROOM DUE TO FEELING LONELY. LISTEN TO PATIENT. ALLOW TO VENT. PATIENT STATE FEELING BETTER AFTER TALKING. ALL SAFETY MEASURES IN PLACE. CALL LIGHT WITHIN REACH. WILL CONTINUE TO MONITOR.
--- NOTE | 2021-06-28 19:05 | NUR ---
ENDORSED TO RADIOLOGY ORDERLY NURSE FOR CONTINUITY OF CARE. PATIENT STABLE. ALL SAFETY MEASURES IN PLACE.
[2021-06-28 20:00] VITALS: BP 129/70
[2021-06-29] VITALS: BP 129/69
[2021-06-29] MEDS: HYDROcodone/APAP 5/325 MG 1 TAB TAB PO PRN ×2 (00:45→09:22)
--- NOTE | 2021-06-29 02:15 | NUR ---
PAIN WAS WELL CONTROLLED VSS SHE IS SLEEPING WELL
[2021-06-29] MEDS: HYDROmorphone 1 MG/ML AMP IVP PRN (02:47)
--- NOTE | 2021-06-29 02:53 | NUR ---
PT C/O SURGICAL PAIN DILAUDID 1MG GIVEN WILL REASSESS AFTER 30 MINS ,
[2021-06-29 04:00] VITALS: BP 110/70
[2021-06-29] MEDS: metroNIDAZOLE 500 MG/NS PREMIX 100 ML IV SCH (05:00)
--- NOTE | 2021-06-29 06:07 | NUR ---
PT SLEPT WELL AFTER CONTROLLING HER PAIN , VSS .
[2021-06-29 07:26] LABS: BASOPHILS % (AUTO) 0.1 % (0.0-2.0); HEMATOCRIT 32.3 % (36-48); HEMOGLOBIN 10.7 g/dL (12.0-16.0); LYMPHOCYTES # (AUTO) 1.3 K/uL (2.5-16.5); MEAN CORPUSCULAR HEMOGLOBIN 31 pg (27-31); MEAN CORPUSCULAR HGB CONC 33 g/dL (33-37); MEAN CORPUSCULAR VOLUME 91.8 fL (80-94); MONOCYTES # (AUTO) 0.9 K/uL (0.8-1.0); MONOCYTES % (AUTO) 6.2 % (1.7-9.3); NEUTROPHILS # (AUTO) 12.3 K/uL (1.8-7.7); NEUTROPHILS % (AUTO) 84.7 % (42.2-75.2); PLATELET COUNT (AUTO) 420 K/uL (140-450); RED BLOOD CELL COUNT(AUTO) 3.51 MIL/uL (4.20-5.40); RED CELL DISTRIBUTION WIDTH 13.1 % (11.6-13.7); WHITE BLOOD COUNT (AUTO) 14.5 K/uL (4.8-10.8)
[2021-06-29 07:48] LABS: ALBUMIN 3.3 g/dL (3.4-5.0); ANION GAP 12.8 (8-16); CARBON DIOXIDE 27.1 mmol/L (21-32); CREATININE 0.7 mg/dL (0.6-1.3); POTASSIUM 3.9 mmol/L (3.5-5.1); TOTAL BILIRUBIN 0.6 mg/dL (0.0-1.0)
[2021-06-29 08:00] VITALS: BP 99/71
[2021-06-29] MEDS: NACL 0.9% 1,000 ML IV SCH (09:22)
[2021-06-29] MEDS ORDERED: ACET-9525 PO (09:47)
[2021-06-29 09:56] VITALS: BP 99/71
[2021-06-29] MEDS ORDERED: IBUP-2213 PO (10:42)
--- NOTE | 2021-06-29 13:00 | NUR ---
Patient discharged home and was given education on medications, disease process and follow up appointments with physician. All questions regarding discharge answered and patient had no further needs.
== END 2021-06-29 12:55 | disposition home or self-care (01) | DRG 263 ==
LOC: MED 15:45 → MTU 18:57
PROVIDERS: ADMIT Internal Medicine; ATTEND Internal Medicine
PROC: 0FT44ZZ Resection of Gallbladder, Percutaneous Endoscopic Approach (ICD-10-PCS; principal; 2021-06-28 08:50)
DX: K80.00 Calculus of gallbladder with acute cholecystitis without obstruction (principal); E66.9 Obesity, unspecified; Z20.822 Contact with and (suspected) exposure to COVID-19; Z68.24 Body mass index [BMI] 24.0-24.9, adult
CPT/HCPCS: 36415; 80053; 82150; 83690; 85025; 87081; 88304; 96365; 99285; J0330; J0696; J1100; J1170; J2001; J2175; J2250; J2405; J2543; J2704; J3010; J3490; J7030; J7060; J7120

== ENCOUNTER 2021-07-15 15:12 | Emergency (ER) | payer OTHER, SELFPAY ==
[~2021-07-15] VITALS: Ht 154.9 cm; Wt 84.4 kg
[~2021-07-15 15:12] MED LIST changes: -ACET-10509 PO; -ACET-8386 PO; -AZIT250T4 PO; -BENZ-196 PO; -DEC4 PO; -IVER3TAB2 PO; -ONDA-24 PO; -ONDA8TAB87 PO; -ROBAC PO
[2021-07-15 15:21] VITALS: BP 104/58
--- NOTE | 2021-07-15 15:52 | NUR ---
26 Y/O FEMALE C/O ABD PAIN / TO [facility] TO LEFT FLANK. PT STATES SHE HAD SX X2 WEEKS FOR [facility] SIMONE, DR JARQUIN SURGEON TOLD TO COME TO ER. DENIES N/V, DENIES FEVER/CHILLS. CLOSED INCISIONS TO ABDOMEN SCABBED OVER AND WITH GLUE. nO S/SX OF ACTIVE BEEDING AT THIS TIME. PMHX: DENIES DENIES ALLERGIES HOME MEDS: DENIES
[2021-07-15] MEDS ORDERED: IBUPROFEN 600 MG TAB PO ONE (16:00)
--- NOTE | 2021-07-15 16:45 | NUR ---
Urine collected and given to Nila Veterinary Practice Manager
[2021-07-15 16:47] LABS: ANION GAP 13.5 (8-16); CARBON DIOXIDE 26.8 mmol/L (21-32); CREATININE 0.8 mg/dL (0.6-1.3); POTASSIUM 4.3 mmol/L (3.5-5.1)
--- NOTE | 2021-07-15 16:50 | NUR ---
Radiology at bedside completing XRAY
[2021-07-15 16:53] LABS: ALBUMIN 3.7 g/dL (3.4-5.0); TOTAL BILIRUBIN 0.2 mg/dL (0.0-1.0)
[2021-07-15 17:05] LABS: BASOPHILS % (AUTO) 0.5 % (0.0-2.0); EOSINOPHILS # (AUTO) 0.2 K/uL (0-0.4); EOSINOPHILS % (AUTO) 2.5 % (0.0-4.0); HEMATOCRIT 36.3 % (36-48); HEMOGLOBIN 12.1 g/dL (12.0-16.0); LYMPHOCYTES # (AUTO) 2.9 K/uL (2.5-16.5); LYMPHOCYTES % (AUTO) 29.9 % (20.5-51.1); MEAN CORPUSCULAR HEMOGLOBIN 31 pg (27-31); MEAN CORPUSCULAR HGB CONC 33 g/dL (33-37); MEAN CORPUSCULAR VOLUME 93.7 fL (80-94); MONOCYTES # (AUTO) 0.6 K/uL (0.8-1.0); MONOCYTES % (AUTO) 6.6 % (1.7-9.3); NEUTROPHILS # (AUTO) 5.9 K/uL (1.8-7.7); NEUTROPHILS % (AUTO) 60.5 % (42.2-75.2); PLATELET COUNT (AUTO) 366 K/uL (140-450); RED BLOOD CELL COUNT(AUTO) 3.88 MIL/uL (4.20-5.40); RED CELL DISTRIBUTION WIDTH 13.5 % (11.6-13.7); WHITE BLOOD COUNT (AUTO) 9.8 K/uL (4.8-10.8)
[2021-07-15 17:08] LABS: APPEARANCE,URINE CLEAR (CLEAR); BILIRUBIN,URINE NEGATIVE (NEGATIVE); BLOOD, URINE NEGATIVE (NEGATIVE); COLOR,URINE YELLOW (YELLOW); LEUKOCYTE ESTERASE ,URINE NEGATIVE (NEGATIVE); NITRITE, URINE NEGATIVE (NEGATIVE); UGLUCOSE NEGATIVE (NEGATIVE)
[2021-07-15] MEDS ORDERED: MAGN1.7529 PO (17:32)
[2021-07-15 18:04] VITALS: BP 100/52
--- NOTE | 2021-07-15 18:05 | NUR ---
Patient discharged with v/s stable. Written and verbal after care instructions given and explained. Patient alert, oriented and verbalized understanding of instructions. Ambulatory with steady gait. All questions addressed prior to discharge. ID band removed. Patient advised to follow up with PMD. Rx of MAGNESIUM CITRATE given. Patient educated on indication of medication including possible reaction and side effects. Opportunity to ask questions provided and answered.
== END 2021-07-15 18:04 | disposition home or self-care (01) ==
LOC: MED 15:12
DX: R10.12 Left upper quadrant pain (principal); K59.00 Constipation, unspecified; Z90.49 Acquired absence of other specified parts of digestive tract
CPT/HCPCS: 36415; 74022; 80053; 81003; 81025; 83690; 85025; 99284

== ENCOUNTER 2021-09-10 23:04 | Emergency (ER) | payer MEDICAID, OTHER ==
[~2021-09-10] VITALS: Ht 154.9 cm; Wt 85.3 kg
[~2021-09-10 23:04] MED LIST changes: +MAGN1.7529 PO
[2021-09-10 23:14] VITALS: BP 109/62
--- NOTE | 2021-09-10 23:19 | NUR ---
PATIENT TO [facility] AMBUL[facility]
--- NOTE | 2021-09-10 23:41 | NUR ---
KASSANDRA AT CHAIR A EXAMINATING PATIENT.
[2021-09-11] MEDS ORDERED: ONDANSETRON 4 MG ODT PO ONE (00:10)
[2021-09-11] MEDS ORDERED: ONDA-188 SL (00:11)
--- NOTE | 2021-09-11 00:24 | NUR ---
PATIENT LEFT WITHOUT D/C PAPERS
== END 2021-09-11 00:24 | disposition home or self-care (01) ==
LOC: MED 23:04
DX: R11.2 Nausea with vomiting, unspecified (principal); R19.7 Diarrhea, unspecified; R10.9 Unspecified abdominal pain; Z79.899 Other long term (current) drug therapy
CPT/HCPCS: 99283; Q0162

== ENCOUNTER 2022-01-16 17:31 | Emergency (ER) | payer MEDICAID ==
[~2022-01-16] VITALS: Ht 154.9 cm; Wt 92.5 kg
[~2022-01-16 17:31] MED LIST changes: +ONDA-188 SL
[2022-01-16 17:36] VITALS: BP 127/95
[2022-01-16] MEDS ORDERED: ONDANSETRON 4 MG ODT PO ONE (17:45)
--- NOTE | 2022-01-16 18:35 | NUR ---
26 y/o female, c/o n/v/d, fatigue with abd pain for 5 days. mother reports that daughter had gotten sick with same s/s the next day. skin is pink/warm/dry. a&o x4 with even and steady gait. lungs clear bl, heart rate even and regular. pt denies dysuria, hematuria, urinary frequency or retention. pt denies any fever, cp, sob, or cough at this time. pt states pain is 4/10 at this time. vss. patient positioned for comfort. hob elevated. bed down. ermd made aware of pt. pmh: denies nka med: bentyl (no relief)
[2022-01-16] MEDS ORDERED: IMO2 PO (18:46)
[2022-01-16] MEDS ORDERED: ONDA-188 SL (18:46)
[2022-01-16] MEDS ORDERED: FAMO-90 PO (18:46)
[2022-01-16 18:58] VITALS: BP 127/95
--- NOTE | 2022-01-16 18:59 | NUR ---
Patient discharged with v/s stable. Written and verbal after care instructions given and explained. Patient alert, oriented and verbalized understanding of instructions. Ambulatory with steady gait. All questions addressed prior to discharge. ID band removed. Patient advised to follow up with PMD. Rx of zofran, pepcid, loperamide (sent) given. Patient educated on indication of medication including possible reaction and side effects. Opportunity to ask questions provided and answered. work note given
== END 2022-01-16 18:59 | disposition home or self-care (01) ==
LOC: MED 17:31
DX: R11.10 Vomiting, unspecified (principal); R19.7 Diarrhea, unspecified; R10.13 Epigastric pain; R03.0 Elevated blood-pressure reading, without diagnosis of hypertension; Z79.899 Other long term (current) drug therapy
CPT/HCPCS: 81002; 81025; 99283; Q0162

== ENCOUNTER 2022-04-29 02:48 | Emergency (ER) | payer MEDICAID ==
[~2022-04-29] VITALS: Ht 154.9 cm; Wt 90.7 kg
[~2022-04-29 02:48] MED LIST changes: +FAMO-90 PO; +IMO2 PO; -MAGN1.7529 PO; +MAGN296S2 PO
[2022-04-29 02:54] VITALS: BP 124/68
--- NOTE | 2022-04-29 03:01 | NUR ---
TO BED 11 FOLLOWING TRIAGE
[2022-04-29] MEDS ORDERED: ALUMINUM HYD/MAG/SIMETHICONE 30 ML, DICYCLOMINE HCL LIQUID 20 MG, LIDOCAINE VISCOUS 2% ... PO ONE ×3 (03:15)
[2022-04-29] MEDS ORDERED: PRED20TA5 PO (03:19)
[2022-04-29] MEDS ORDERED: DICYCLOMINE HCL LIQUID 10 MG/5 ML UDC ONE (03:28)
[2022-04-29] MEDS ORDERED: ALUMINUM HYD/MAG/SIMETHICONE 30 ML UDC ONE (03:28)
--- NOTE | 2022-04-29 04:05 | NUR ---
27 yo/f presents to ed w c/o of hoarse voice x1 week, sore throat. Pt denies any fevers, cough, sick contacts. Pt reports often yelling at family members to get chores done. Pt reports feeling better after medication and wants to go home. no sob. pmh: denies' allergies: denies
[2022-04-29 04:10] VITALS: BP 124/68
== END 2022-04-29 04:10 | disposition home or self-care (01) ==
LOC: MED 02:48
DX: J04.0 Acute laryngitis (principal); Z79.899 Other long term (current) drug therapy
CPT/HCPCS: 99283

== ENCOUNTER 2022-05-09 17:32 | Emergency (ER) | payer MEDICAID ==
[~2022-05-09] VITALS: Ht 154.9 cm; Wt 94.3 kg
[~2022-05-09 17:32] MED LIST changes: +PRED20TA5 PO
[2022-05-09 17:43] VITALS: BP 113/72
--- NOTE | 2022-05-09 18:00 | NUR ---
27 Y/O FEMALE C/O RIGHT BIG TOE PAIN,PER PT SHE STUBBED HER TOE ON CONCRETE LAST WEEK. WENT TO [facility] ER AND TOE FRACTURE WAS NOTED. HERE FOR MEDICAL CLEARANCE AND DR JUSTUS BROWN [facility]: [place]
--- NOTE | 2022-05-09 18:02 | NUR ---
PA MODI AT PT SIDE FOR EVAL
--- NOTE | 2022-05-09 18:42 | NUR ---
Patient discharged with v/s stable. Written and verbal after care instructions ABOUT TOE FRACTURE given and explained. Patient verbalized understanding. Ambulatory with steady gait. All questions addressed prior to discharge. Advised to follow up with PMD.
== END 2022-05-09 18:42 | disposition home or self-care (01) ==
LOC: MED 17:32
DX: S92.422A Displaced fracture of distal phalanx of left great toe, initial encounter for closed fracture (principal); W18.30XA Fall on same level, unspecified, initial encounter; Y93.89 Activity, other specified; Y92.89 Other specified places as the place of occurrence of the external cause; Y99.8 Other external cause status
CPT/HCPCS: 99281

== ENCOUNTER 2022-05-20 21:49 | Emergency (ER) | payer MEDICAID ==
[~2022-05-20] VITALS: Ht 154.9 cm; Wt 95.3 kg
[2022-05-20 21:54] VITALS: BP 153/96
[2022-05-20] MEDS ORDERED: ACETAMINOPHEN EXTRA STRENGTH 500 MG TAB ONE (22:02)
--- NOTE | 2022-05-20 22:06 | NUR ---
Patient waited inside her car.
[2022-05-20] MEDS ORDERED: ACETAMINOPHEN EXTRA STRENGTH 500 MG TAB PO ONE (22:20)
--- NOTE | 2022-05-21 00:04 | NUR ---
called no show in Lobby or outside.
--- NOTE | 2022-05-21 00:36 | NUR ---
Called no show in lobby or outside.
--- NOTE | 2022-05-21 00:36 | NUR ---
PATIENT LEFT WITHOUT BEING SEEN BY DR. RICHARD. NO FURTHER CARE PROVIDED FOR PATIENT.
== END 2022-05-21 00:36 | disposition left against medical advice (07) ==
LOC: MED 21:49
DX: R50.9 Fever, unspecified (principal); R05.9 Cough, unspecified; R09.81 Nasal congestion; Z53.21 Procedure and treatment not carried out due to patient leaving prior to being seen by health care provider

== ENCOUNTER 2022-06-22 12:02 | Emergency (ER) | payer OTHER, MEDICAID ==
[~2022-06-22] VITALS: Ht 154.9 cm; Wt 96.6 kg
[2022-06-22 12:22] VITALS: BP 128/91
[2022-06-22] MEDS ORDERED: IBUPROFEN 600 MG TAB PO ONE (13:20)
[2022-06-22] MEDS ORDERED: IBUP-2213 PO (14:24)
[2022-06-22] MEDS ORDERED: IBUPROFEN 600 MG TAB ONE (14:29)
[2022-06-22 14:38] VITALS: BP 122/91
== END 2022-06-22 14:38 | disposition home or self-care (01) ==
LOC: MED 12:02
DX: S20.219A Contusion of unspecified front wall of thorax, initial encounter (principal); S70.01XA Contusion of right hip, initial encounter; G44.209 Tension-type headache, unspecified, not intractable; Z79.899 Other long term (current) drug therapy; Z90.49 Acquired absence of other specified parts of digestive tract; V89.2XXA Person injured in unspecified motor-vehicle accident, traffic, initial encounter; Y93.89 Activity, other specified; Y92.89 Other specified places as the place of occurrence of the external cause; Y99.8 Other external cause status
CPT/HCPCS: 71045; 93005; 99283; Q0092

== ENCOUNTER 2022-08-09 10:49 | Emergency (ER) | payer MEDICAID, OTHER ==
[~2022-08-09] VITALS: Ht 154.9 cm; Wt 99.3 kg
[2022-08-09 10:54] VITALS: BP 100/70
--- NOTE | 2022-08-09 11:18 | NUR ---
27 YO FEMALE CAME IN BY HERSELF FOR N/V/D. PT STATES SHE HAS BEEN FEELING FLU LIKE SX SINCE Thursday08/07/22, DIARRHEA X3 YESTERDAY 08/08/22 AND VOMIT LAST NIGHT 08/08/22 @ 2000, CLEAR/YELLOW BILE WITH BITTER TASTE. PT STATES SHE DRANK THERAFLU TEA AND HAD CHICKEN SOUP LAST NIGHT 08/08/22 @ 2200. SHE ALSO STATES SHE HAD SWOLLEN EYES AND NOSE BUT NO LONGER HAS THOSE SYMPTOMS. RAVENA [facility]
--- NOTE | 2022-08-09 11:43 | NUR ---
MD OLSEN AT BEDSIDE FOR EVALUATION
[2022-08-09] MEDS ORDERED: ONDANSETRON 4 MG ODT PO ONE (11:50)
--- NOTE | 2022-08-09 12:05 | NUR ---
LAB AT BEDSIDE
[2022-08-09 12:49] LABS: BASOPHILS % (AUTO) 0.5 % (0.0-2.0); EOSINOPHILS # (AUTO) 0.1 K/uL (0-0.4); EOSINOPHILS % (AUTO) 1.3 % (0.0-4.0); HEMATOCRIT 37.1 % (36-48); HEMOGLOBIN 12.4 g/dL (12.0-16.0); LYMPHOCYTES % (AUTO) 26.9 % (20.5-51.1); MEAN CORPUSCULAR HEMOGLOBIN 31 pg (27-31); MEAN CORPUSCULAR HGB CONC 33 g/dL (33-37); MEAN CORPUSCULAR VOLUME 91.3 fL (80-94); MONOCYTES # (AUTO) 0.9 K/uL (0.8-1.0); MONOCYTES % (AUTO) 12.5 % (1.7-9.3); NEUTROPHILS # (AUTO) 4.4 K/uL (1.8-7.7); NEUTROPHILS % (AUTO) 58.8 % (42.2-75.2); PLATELET COUNT (AUTO) 346 K/uL (140-450); RED BLOOD CELL COUNT(AUTO) 4.06 MIL/uL (4.20-5.40); RED CELL DISTRIBUTION WIDTH 13.4 % (11.6-13.7); WHITE BLOOD COUNT (AUTO) 7.5 K/uL (4.8-10.8)
[2022-08-09 13:06] LABS: ALBUMIN 3.3 g/dL (3.4-5.0); ANION GAP 14.4 (8-16); CARBON DIOXIDE 23.6 mmol/L (21-32); CREATININE 0.9 mg/dL (0.6-1.3); TOTAL BILIRUBIN 0.3 mg/dL (0.0-1.0)
[2022-08-09] MEDS ORDERED: ONDA-188 PO (13:13)
--- NOTE | 2022-08-09 13:23 | NUR ---
Patient discharged with v/s stable. Written and verbal after care instructions FOR VIRAL GASTROENTERITIS given and explained. Patient alert, oriented and verbalized understanding of instructions. Ambulatory with steady gait. All questions addressed prior to discharge. ID band removed. Patient advised to follow up with PMD. Rx of ZOFRAN given. Opportunity to ask questions provided and answered.
[2022-08-09 13:24] VITALS: BP 101/71
--- NOTE | 2022-08-09 13:24 | NUR ---
The patient's care was reviewed and supervised by Sandra Vergara RN.
== END 2022-08-09 13:23 | disposition home or self-care (01) ==
LOC: MED 10:49
DX: R11.2 Nausea with vomiting, unspecified (principal); R19.7 Diarrhea, unspecified; Z90.49 Acquired absence of other specified parts of digestive tract; Z79.899 Other long term (current) drug therapy; Z79.1 Long term (current) use of non-steroidal anti-inflammatories (NSAID)
CPT/HCPCS: 36415; 80053; 81002; 81025; 83690; 85025; 99283; Q0162

== ENCOUNTER 2022-10-05 16:22 | Emergency (ER) | payer MEDICAID ==
[~2022-10-05] VITALS: Ht 154.4 cm; Wt 97.7 kg
[~2022-10-05 16:22] MED LIST changes: +ONDA-188 PO
[2022-10-05 16:52] VITALS: BP 124/84
--- NOTE | 2022-10-05 16:55 | NUR ---
C/O SORE THROAT, FABRICIO EAR PAIN, CASTRO, BODY ACHES, COUGH X 2 DAYS.
[2022-10-05] MEDS ORDERED: IBUP-2213 PO (18:02)
[2022-10-05] MEDS ORDERED: BENZ-300 PO (18:02)
[2022-10-05] MEDS ORDERED: PROM118S5 PO (18:02)
--- NOTE | 2022-10-05 18:20 | NUR ---
COVID SWAB DONE.
--- NOTE | 2022-10-05 18:22 | NUR ---
Patient discharged with v/s stable. Written and verbal after care instructions FOR UPPER RESPIRATORY INFECTION given and explained. Patient alert, oriented and verbalized understanding of instructions. Ambulatory with steady gait. All questions addressed prior to discharge. ID band removed. Patient advised to follow up with PMD. Rx of BENZOCAINE, IBUPROFEN AND PROMETHAZINE given. Opportunity to ask questions provided and answered.
== END 2022-10-05 18:22 | disposition home or self-care (01) ==
LOC: MED 16:22
DX: J06.9 Acute upper respiratory infection, unspecified (principal); Z20.822 Contact with and (suspected) exposure to COVID-19; Z79.899 Other long term (current) drug therapy
CPT/HCPCS: 99283

== ENCOUNTER 2023-01-14 21:59 | Emergency (ER) | payer MEDICAID ==
[~2023-01-14] VITALS: Ht 154.9 cm; Wt 95.3 kg
[~2023-01-14 21:59] MED LIST changes: +BENZ-300 PO; +PROM118S5 PO
[2023-01-14 22:15] VITALS: BP 114/72
--- NOTE | 2023-01-14 22:18 | NUR ---
TO LOBBY A/W BED AMBULATORY
[2023-01-14] MEDS ORDERED: LIDOCAINE 1% 500 MG/ 50 ML VIAL INJ ONE (22:55)
--- NOTE | 2023-01-14 22:58 | NUR ---
Patient taken to bed 5.
[2023-01-14] MEDS ORDERED: BACITRACIN OINT 500 UNITS/GM PKT TP ONE (23:00)
--- NOTE | 2023-01-14 23:00 | NUR ---
ALBINO Quintana examining patient.
[2023-01-14] MEDS ORDERED: LIDOCAINE MPF 1% 5 ML ONE (23:01)
--- NOTE | 2023-01-14 23:16 | NUR ---
ALBINO Quintana at bedside -procedure removal ingrown toe nail.
[2023-01-14] MEDS ORDERED: ALPRAZolam 0.5 MG TAB PO STA (23:22)
[2023-01-14] MEDS ORDERED: BACI-416 TP (23:39)
[2023-01-14] MEDS ORDERED: IBUP-2213 PO (23:39)
[2023-01-15 00:20] VITALS: BP 122/72
--- NOTE | 2023-01-15 00:20 | NUR ---
Patient discharged with v/s stable. Written and verbal after care instructions given and explained. Patient alert, oriented and verbalized understanding of instructions. Ambulatory with steady gait. All questions addressed prior to discharge. ID band removed. Patient advised to follow up with PMD. Rx of Bacitracin oint and Ibuprofen given. Patient educated on indication of medication including possible reaction and side effects. Opportunity to ask questions provided and answered.
== END 2023-01-15 00:20 | disposition home or self-care (01) ==
LOC: MED 21:59
DX: L60.0 Ingrowing nail (principal); Z79.899 Other long term (current) drug therapy; Z79.1 Long term (current) use of non-steroidal anti-inflammatories (NSAID); Z79.2 Long term (current) use of antibiotics
CPT/HCPCS: 11730; 99284; J2001

== ENCOUNTER 2023-03-28 16:21 | Emergency (ER) | payer MEDICAID ==
[~2023-03-28] VITALS: Ht 154.9 cm; Wt 95.7 kg
[~2023-03-28 16:21] MED LIST changes: +BACI-416 TP; -MAGN296S2 PO; +MAGN296S70 PO
[2023-03-28 16:23] VITALS: BP 125/72
--- NOTE | 2023-03-28 16:43 | NUR ---
PT AMBULATED TO BED 04
[2023-03-28] MEDS ORDERED: LIDOCAINE MPF 1% 10 ML ONE (16:44)
[2023-03-28] MEDS ORDERED: LIDOCAINE MPF 1% 10 MG/ML VIAL INJ ONE (16:45)
[2023-03-28] MEDS ORDERED: BACITRACIN OINT 500 UNITS/GM PKT TP ONE ×2 (16:45)
[2023-03-28] MEDS ORDERED: IBUP-1842 PO (17:54)
[2023-03-28] MEDS ORDERED: BACI-416 TP (17:54)
[2023-03-28 18:04] VITALS: BP 125/72
--- NOTE | 2023-03-28 18:05 | NUR ---
Patient discharged with v/s stable. Written and verbal after care instructions given and explained. Patient alert, oriented and verbalized understanding of instructions. Ambulatory with steady gait. All questions addressed prior to discharge. ID band removed. Patient advised to follow up with PMD. Rx of bacitracin, motrin (sent) given. Patient educated on indication of medication including possible reaction and side effects. Opportunity to ask questions provided and answered.
== END 2023-03-28 18:05 | disposition home or self-care (01) ==
LOC: MED 16:21
DX: L60.0 Ingrowing nail (principal); Z79.899 Other long term (current) drug therapy
CPT/HCPCS: 11730; 99284; J2001; 99282

== ENCOUNTER 2023-06-03 17:21 | Emergency (ER) | payer MEDICAID ==
[~2023-06-03] VITALS: Ht 154.9 cm; Wt 95.3 kg
[~2023-06-03 17:21] MED LIST changes: -BACI-416 TP; +BACI-418 TP; +IBUP-1842 PO
[2023-06-03 17:55] VITALS: BP 117/73; PULSE 69; RESP 18; TEMP 97.1; O2SAT 99
[2023-06-03] MEDS ORDERED: IBUP-1842 PO (19:16)
== END 2023-06-03 19:26 | disposition home or self-care (01) ==
LOC: MED 17:21
DX: S99.922A Unspecified injury of left foot, initial encounter (principal); Z79.899 Other long term (current) drug therapy; Z79.1 Long term (current) use of non-steroidal anti-inflammatories (NSAID); Z79.2 Long term (current) use of antibiotics; W01.0XXA Fall on same level from slipping, tripping and stumbling without subsequent striking against object, initial encounter; Y92.89 Other specified places as the place of occurrence of the external cause; Y93.89 Activity, other specified; Y99.8 Other external cause status
CPT/HCPCS: 99282

== ENCOUNTER 2023-06-07 20:50 | Emergency (ER) | payer MEDICAID ==
[~2023-06-07] VITALS: Ht 154.9 cm; Wt 98.0 kg
[2023-06-07 21:19] VITALS: BP 99/52; PULSE 59; RESP 16; TEMP 98; O2SAT 98
[2023-06-07] MEDS ORDERED: NAPR-54 PO (23:46)
[2023-06-07 23:51] VITALS: BP 99/52; PULSE 59; RESP 16; TEMP 98; O2SAT 98
== END 2023-06-07 23:42 | disposition home or self-care (01) ==
LOC: MED 20:50
DX: M79.672 Pain in left foot (principal); Z90.49 Acquired absence of other specified parts of digestive tract; Z79.899 Other long term (current) drug therapy
CPT/HCPCS: 29515; 73610; 73630; 99284

== ENCOUNTER 2023-06-24 00:45 | Emergency (ER) | payer MEDICAID ==
[~2023-06-24] VITALS: Ht 154.9 cm; Wt 98.0 kg
[~2023-06-24 00:45] MED LIST changes: +NAPR-54 PO
[2023-06-24 00:58] VITALS: BP 121/61; PULSE 62; RESP 19; TEMP 97.1; O2SAT 99
[2023-06-24] MEDS ORDERED: NAPR-54 PO (04:15)
[2023-06-24 05:25] VITALS: BP 109/78; PULSE 64; RESP 15; TEMP 97.1; O2SAT 100
== END 2023-06-24 05:25 | disposition home or self-care (01) ==
LOC: MED 00:45
DX: S93.692A Other sprain of left foot, initial encounter (principal); X58.XXXA Exposure to other specified factors, initial encounter; Y93.89 Activity, other specified; Y92.89 Other specified places as the place of occurrence of the external cause; Y99.8 Other external cause status
CPT/HCPCS: 73630; 82948; 99283; Q0092; 99284

== ENCOUNTER 2023-08-24 10:52 | Emergency (ER) | payer MEDICAID ==
[~2023-08-24] VITALS: Ht 162.6 cm; Wt 72.6 kg
[2023-08-24 11:17] VITALS: BP 129/97; PULSE 89; RESP 18; TEMP 97; O2SAT 98
[2023-08-24 11:34] LABS: BASOPHILS % (AUTO) 0.4 % (0.0-2.0); EOSINOPHILS % (AUTO) 0.3 % (0.0-4.0); HEMATOCRIT 40.1 % (36-48); HEMOGLOBIN 13.3 g/dL (12.0-16.0); LYMPHOCYTES % (AUTO) 15.3 % (20.5-51.1); MEAN CORPUSCULAR HEMOGLOBIN 31 pg (27-31); MEAN CORPUSCULAR HGB CONC 33 g/dL (33-37); MONOCYTES # (AUTO) 0.7 K/uL (0.8-1.0); MONOCYTES % (AUTO) 5.3 % (1.7-9.3); NEUTROPHILS # (AUTO) 10.4 K/uL (1.8-7.7); NEUTROPHILS % (AUTO) 78.7 % (42.2-75.2); PLATELET COUNT (AUTO) 454 K/uL (140-450); RED BLOOD CELL COUNT(AUTO) 4.36 MIL/uL (4.20-5.40); RED CELL DISTRIBUTION WIDTH 13.8 % (11.6-13.7); WHITE BLOOD COUNT (AUTO) 13.2 K/uL (4.8-10.8)
[2023-08-24] MEDS ORDERED: ACET-2619 PO ×2 (12:20→14:49)
[2023-08-24] MEDS ORDERED: CEPH-588 PO ×2 (12:20→14:49)
[2023-08-24 12:53] LABS: APPEARANCE,URINE SL CLOUDY (CLEAR); BILIRUBIN,URINE NEGATIVE (NEGATIVE); BLOOD, URINE 3+ (NEGATIVE); COLOR,URINE RED (YELLOW); LEUKOCYTE ESTERASE ,URINE 2+ (NEGATIVE); NITRITE, URINE POSITIVE (NEGATIVE); PH,URINE 6.5 (5.0-9.0); PROTEIN,URINE 3+ (NEGATIVE); UGLUCOSE NEGATIVE (NEGATIVE)
[2023-08-24 13:09] LABS: RBC,URINE >100 /HPF (0-5)
[2023-08-24 13:10] LABS: BACTERIA,URINE 2+ /HPF (None Seen); SQUAMOUS EPITHELIAL CELL,UR 4-10 (MOD) /LPF (0-3 (FEW))
[2023-08-24 13:11] LABS: MUCUS,URINE None Seen /LPF (None Seen); YEAST,URINE None Seen /HPF (None Seen)
[2023-08-24 13:12] VITALS: BP 129/97; PULSE 89; RESP 18; TEMP 97; O2SAT 98
[2023-08-24 19:56] LABS: AMPHETAMINE, URINE POSITIVE ng/ml (NEG <=1000); BARBITURATE, URINE NEGATIVE ng/ml (NEG <=200); BENZODIAZEPINE, URINE NEGATIVE ng/mL (NEG <=200); CANNABINOID, URINE NEGATIVE ng/mL (NEG <=50); COCAINE, URINE NEGATIVE ng/mL (NEG <=300); OPIATE, URINE NEGATIVE ng/mL (NEG <=2000); PHENCYCLIDINE SCREEN,URINE NEGATIVE ng/mL (NEG <=25)
== END 2023-08-24 13:12 | disposition home or self-care (01) ==
LOC: MED 10:52
DX: O20.0 Threatened abortion (principal); O23.41 Unspecified infection of urinary tract in pregnancy, first trimester; O9A.211 Injury, poisoning and certain other consequences of external causes complicating pregnancy, first trimester; L03.011 Cellulitis of right finger; Z3A.01 Less than 8 weeks gestation of pregnancy
CPT/HCPCS: 36415; 76817; 80305; 81001; 81025; 84702; 85025; 86900; 86901; 87086; 99284; Q0092

== ENCOUNTER 2023-08-27 13:36 | Emergency (ER) | payer MEDICAID ==
[~2023-08-27] VITALS: Ht 152.4 cm; Wt 86.2 kg
[~2023-08-27 13:36] MED LIST changes: +ACET-2619 PO; +CEPH-588 PO
[2023-08-27 13:51] VITALS: BP 112/87; PULSE 110; RESP 16; TEMP 98.4; O2SAT 98
[2023-08-27 14:15] LABS: BASOPHILS # (AUTO) 0.1 K/uL (0.00-0.22); BASOPHILS % (AUTO) 0.5 % (0.0-2.0); EOSINOPHILS % (AUTO) 0.2 % (0.0-4.0); HEMATOCRIT 33.7 % (36-48); HEMOGLOBIN 11.3 g/dL (12.0-16.0); LYMPHOCYTES # (AUTO) 1.6 K/uL (2.5-16.5); LYMPHOCYTES % (AUTO) 15.4 % (20.5-51.1); MEAN CORPUSCULAR HEMOGLOBIN 31 pg (27-31); MEAN CORPUSCULAR HGB CONC 34 g/dL (33-37); MEAN CORPUSCULAR VOLUME 91.7 fL (80-94); MONOCYTES # (AUTO) 0.6 K/uL (0.8-1.0); MONOCYTES % (AUTO) 6.3 % (1.7-9.3); NEUTROPHILS % (AUTO) 77.6 % (42.2-75.2); PLATELET COUNT (AUTO) 412 K/uL (140-450); RED BLOOD CELL COUNT(AUTO) 3.67 MIL/uL (4.20-5.40); RED CELL DISTRIBUTION WIDTH 13.5 % (11.6-13.7); WHITE BLOOD COUNT (AUTO) 10.3 K/uL (4.8-10.8)
[2023-08-27 14:46] VITALS: O2SAT 98
== END 2023-08-27 16:32 | disposition home or self-care (01) ==
LOC: MED 13:36
DX: O03.4 Incomplete spontaneous abortion without complication (principal); O99.321 Drug use complicating pregnancy, first trimester; F15.90 Other stimulant use, unspecified, uncomplicated; Z3A.01 Less than 8 weeks gestation of pregnancy; Z79.899 Other long term (current) drug therapy; Z79.2 Long term (current) use of antibiotics; Z79.1 Long term (current) use of non-steroidal anti-inflammatories (NSAID)
CPT/HCPCS: 36415; 76801; 84702; 85025; 99284; Q0092

== ENCOUNTER 2023-09-04 19:51 | Emergency (ER) | payer MEDICAID ==
[~2023-09-04] VITALS: Ht 157.5 cm; Wt 90.7 kg
[2023-09-04 20:00] VITALS: BP 115/68; PULSE 115; RESP 20; TEMP 97.4; O2SAT 100
[2023-09-04 22:59] LABS: BASOPHILS % (AUTO) 0.4 % (0.0-2.0); EOSINOPHILS % (AUTO) 0.2 % (0.0-4.0); HEMATOCRIT 35.5 % (36-48); HEMOGLOBIN 11.6 g/dL (12.0-16.0); LYMPHOCYTES # (AUTO) 2.2 K/uL (2.5-16.5); LYMPHOCYTES % (AUTO) 19.7 % (20.5-51.1); MEAN CORPUSCULAR HEMOGLOBIN 30 pg (27-31); MEAN CORPUSCULAR HGB CONC 33 g/dL (33-37); MEAN CORPUSCULAR VOLUME 92.5 fL (80-94); MONOCYTES # (AUTO) 0.7 K/uL (0.8-1.0); MONOCYTES % (AUTO) 6.1 % (1.7-9.3); NEUTROPHILS # (AUTO) 8.3 K/uL (1.8-7.7); NEUTROPHILS % (AUTO) 73.6 % (42.2-75.2); PLATELET COUNT (AUTO) 523 K/uL (140-450); RED BLOOD CELL COUNT(AUTO) 3.83 MIL/uL (4.20-5.40); RED CELL DISTRIBUTION WIDTH 13.5 % (11.6-13.7); WHITE BLOOD COUNT (AUTO) 11.3 K/uL (4.8-10.8)
[2023-09-04 23:06] LABS: ANION GAP 14.2 (8-16); CALCIUM 8.8 mg/dL (8.5-10.1); CARBON DIOXIDE 28.8 mmol/L (21-32); CREATININE 0.9 mg/dL (0.6-1.3)
[2023-09-04 23:16] LABS: ACETAMINOPHEN < 0.5 ug/ml (10-30); ALCOHOL, BLOOD < 3 mg/dL (<10); SALICYLATE < 2.8 mg/dL (2.8-20.0)
[2023-09-05 00:03] LABS: AMPHETAMINE, URINE POSITIVE ng/ml (NEG <=1000); BARBITURATE, URINE NEGATIVE ng/ml (NEG <=200); BENZODIAZEPINE, URINE NEGATIVE ng/mL (NEG <=200); CANNABINOID, URINE NEGATIVE ng/mL (NEG <=50); COCAINE, URINE NEGATIVE ng/mL (NEG <=300); OPIATE, URINE NEGATIVE ng/mL (NEG <=2000); PHENCYCLIDINE SCREEN,URINE NEGATIVE ng/mL (NEG <=25)
[2023-09-05] MEDS ORDERED: IBUPROFEN 400 MG TAB PO ONE (01:10)
[2023-09-05] MEDS ORDERED: OLANZapine 10 MG VIAL IM ONE (01:55)
[2023-09-05] MEDS ORDERED: MIDAZOLAM 2 MG/2 ML VIAL IM ONE (01:55)
[2023-09-05] MEDS ORDERED: WATER STERILE 10 ML MC ONE (02:07)
[2023-09-05 03:04] VITALS: O2SAT 98
[2023-09-05 05:40] VITALS: O2SAT 98
[2023-09-05] MEDS: OLANZapine 5 MG ODT PO SCH ×2 (11:50→21:00)
[2023-09-05 19:35] VITALS: O2SAT 99
[2023-09-05 23:19] VITALS: O2SAT 99
[2023-09-06 01:21] VITALS: O2SAT 99
[2023-09-06 03:25] VITALS: O2SAT 99
[2023-09-06 04:00] VITALS: BP 112/69; PULSE 86; RESP 14; TEMP 98.2; O2SAT 99
== END 2023-09-06 04:00 ==
LOC: MED 19:51
DX: F23 Brief psychotic disorder (principal); F22 Delusional disorders; F15.10 Other stimulant abuse, uncomplicated
CPT/HCPCS: 36415; 80048; 80305; 81025; 85025; 96372; 99291; G0480; G0482; J2250; J3490; 99285

== ENCOUNTER 2024-01-22 09:03 | Emergency (ER) | payer MEDICAID, OTHER ==
[~2024-01-22] VITALS: Ht 154.9 cm; Wt 81.6 kg
[2024-01-22 09:12] VITALS: BP 124/61; PULSE 61; RESP 16; TEMP 96.7; O2SAT 99
[2024-01-22] MEDS ORDERED: IBUP-2213 PO (10:48)
[2024-01-22 11:00] VITALS: BP 111/71; PULSE 59; RESP 16; TEMP 97.8; O2SAT 99
== END 2024-01-22 11:00 | disposition home or self-care (01) ==
LOC: MED 09:03
DX: S93.509A Unspecified sprain of unspecified toe(s), initial encounter (principal); Z90.49 Acquired absence of other specified parts of digestive tract; Z79.1 Long term (current) use of non-steroidal anti-inflammatories (NSAID); Z79.899 Other long term (current) drug therapy; W22.8XXA Striking against or struck by other objects, initial encounter; Y93.89 Activity, other specified; Y92.098 Other place in other non-institutional residence as the place of occurrence of the external cause; Y99.8 Other external cause status
CPT/HCPCS: 73660; 81025; 99284